=== PATIENT | male | born 1990 | race Caucasian/White ===

== ENCOUNTER 2016-08-17 12:31 | Observation (INO) | payer OTHER ==
[~2016-08-17] VITALS: Ht 167.6 cm; Wt 121.7 kg
[~2016-08-17 12:31] MED LIST: ALBU0.08 INH; ALBU1AER9 INH; BUPR200T2 PO; CITA10TA8 PO; EPP3/2; FLUT0.15; MONT1TAB3 PO; OMEP20CA9 PO; PRED20TA PO
[2016-08-17] MEDS ORDERED: SODIUM CHLORIDE 0.9% 1000ML 1,000 ML IV STA (12:44)
[2016-08-17 13:15] LABS: BASO % 0.1 %; BASO ABS # 0.01 K/uL (0-0.2); COMPLETE YES; EOS % 0.4 %; IG% 0.8 %; LYMPH % 25.7 %; LYMPH ABS # 2.33 K/uL (1.2-3.4); MEAN CELL VOLUME 84.5 fL (80-100); MEAN CORPUSCULAR HEMOGLOBIN 28.6 pg (25-34); MEAN CORPUSCULAR HGB CONC 33.9 g/dl (32-36); MEAN PLATELET VOLUME 10.1 fL (7.4-10.4); MONO % 13.3 %; NEUT % 59.7 %; PLATELET COUNT 242 K/uL (130-400); RED BLOOD COUNT 5.21 M/uL (4.7-6.1); WHITE BLOOD COUNT 9.08 K/uL (4.8-10.8)
[2016-08-17 13:30] LABS: BUN/CREATININE RATIO 9.1 (10-20); CALCIUM 8.1 mg/dl (8.5-10.1); CREATININE 1.2 mg/dl (0.60-1.40); POTASSIUM 3.5 mmol/L (3.5-5.1)
[2016-08-17 13:32] LABS: C-REACTIVE PROTEIN 3.26 mg/dl (0-0.29)
[2016-08-17] MEDS ORDERED: DEXAMETHASONE SOD INJ 10 MG/ML VIAL IV ONE (13:45)
[2016-08-17] MEDS ORDERED: CLINDAMYCIN IV 900 MG in DEXTROSE 5% ADD-VANTAGE 100ML 100 ML IV ONE (13:45)
[2016-08-17] MEDS ORDERED: FLUT1INH7 INH (14:04)
--- NOTE | 2016-08-17 14:04 | DIAGNOSTIC IMAGING REPORT ---
CT SCAN OF THE NECK WITHOUT IV CONTRAST; CT SCAN OF THE FACIAL BONES CLINICAL HISTORY: Right facial swelling. Jaw pain. Reported history of recent dental extractions. COMPARISON STUDY: No priors. TECHNIQUE: High-resolution CT scan of the facial bones is performed. Images are reviewed in the axial, sagittal, and coronal planes. Unenhanced CT scan of the soft tissues of the neck was also performed from the skull base to the upper chest with images reviewed in the axial, sagittal, and coronal planes. IV contrast was not administered due to reported history of IV contrast allergy. Note that the neck CT is significantly suboptimal without IV contrast. CT DOSE: 1160.37 mGy.cm FINDINGS: Soft tissues and pharynx: There is significant edema of the superficial and deep soft tissues throughout the right facial region and neck. This extends from the mandibular ramus, surrounds the submandibular gland, and extends inferiorly into the supraclavicular region. No organized fluid collection is clearly identified on these unenhanced examinations. Edema extends throughout the right parapharyngeal fat, and there is mild right-sided retropharyngeal soft tissue edema. This causes effacement of the pharyngeal airway without significant compromised. There is only mild edema centered in the left facial soft tissues at and below the level of the mandibular ramus and around the submandibular gland. The left parapharyngeal fat appears preserved. The epiglottis is not well visualized. Lymphadenopathy: There are shotty cervical lymph nodes. Thyroid: Normal in size and attenuation. Salivary glands: The parotid glands are normal in appearance. There is significant inflammatory stranding around both submandibular glands, right greater than left. Brain parenchyma: The visualized brain parenchyma at the skull base is normal in appearance. Calvarium and cervical spine: Imaged portions of the calvarium at the skull base are within normal limits. The cervical spine appears intact. Facial bones: There is no evidence of facial bone fracture. The bony orbits are intact and the orbital contents are within normal limits. The zygomatic arches, nasal bones, and pterygoid plates are preserved. The maxilla and mandible are intact. The central and lateral mandibular incisors are absent. There are several missing maxillary and mandibular molars, likely related to recent wisdom tooth extraction. There is periostitis identified along the right body of the mandible, likely related to recent dental extractions. Sinuses and mastoids: There is moderate mucosal thickening in the left maxillary antrum. Mild mucosal thickening is seen within the right maxillary antrum, the ethmoid sinuses, and the frontal sinuses. Trace mucosal thickening is seen in the sphenoid sinuses. The mastoid air cells are well pneumatized. Lung apices: There is patchy groundglass consolidation seen in the upper lobes, left greater than right. IMPRESSION: 1. There is marked edema of the superficial and deep soft tissues of the right face and neck. This involves the submandibular and submental regions. There is milder inflammatory stranding identified in the left neck adjacent to the mandible ramus and around the left submandibular gland. There is marked inflammatory stranding throughout the right parapharyngeal region with loss of the parapharyngeal fat. There is also mild right-sided retropharyngeal edema. Soft tissue edema mildly compromises the right side of the pharyngeal airway. This is likely related to a nonspecific infectious process, and Sher angina is not excluded. ENT consultation is advised. 2. No organized fluid collection is clearly identified on this unenhanced examination. 3. There is patchy groundglass consolidation present in both upper lobes. This likely represents an infectious or inflammatory pneumonitis. 4. There are several missing maxillary and mandibular molars, likely related to recent wisdom tooth extraction. This may represent a source of infection. 5. There is periostitis along the right mandibular body and ramus, likely related to recent surgery. No facial bone fracture is clearly identified. 6. Paranasal sinus disease as above. Findings were discussed with Dr. Zhou in the emergency department at the time of examination. Electronically signed by: Shan Saenz M.D. 08/17/2016 2:02 PM
--- NOTE | 2016-08-17 14:36 | EMERGENCY ROOM VISIT NOTE ---
History Report prepared by Karina: Charbel Lewis Under the Supervision of: Dr. Malcom Zhou M.D. First contact with patient: 12:40 Chief Complaint: THROAT PAIN/INJURY Stated Complaint: SWOLLEN RIGHT SIDE, THROAT SWOLLEN History of Present Illness The patient is a 26 year old male who presents to the Emergency Room with complaints of worsening right sided facial swelling beginning yesterday. He states that the area is very painful. He has associated sore throat and cough. The patient states that his pain began under his tongue and moved into his face. He notes that he has been on Prednisone recently for an asthma attack. He states that he took Benadryl for his symptoms yesterday but it did not improve his swelling. The patient has had multiple teeth removed from the right side. Source of History: patient Onset: Yesterday Position: head (right face) Quality: other (swelling) Timing: worsening Associated Symptoms: + cough, + sorethroat Review of Systems See HPI for pertinent positives & negatives. A total of 10 systems reviewed and were otherwise negative. Past Medical & Surgical Medical Problems: (1) ADD (attention deficit disorder) (2) Allergic rhinitis (3) Allergy to shellfish (4) Asthma (5) Asthma (6) Asthma, Unspecified (7) Cellulitis and abscess of face (8) Generalized anxiety disorder (9) GERD (gastroesophageal reflux disease) (10) Migraines (11) Personal History, Pneumonia (Recurrent) (12) Pneumonia (13) Sinusitis, acute (14) Tobacco Use Disorder Family History Asthma FATHER BROTHER AUNT Cancer Diabetes mellitus Gallbladder disease Heart disease Hypertension Social History Smoking Status: Never Smoker Alcohol Use: occasionally Drug Use: none Marital Status: single Occupation Status: employed Current/Historical Medications Scheduled Bupropion (Wellbutrin Sr), 200 MG PO DAILY Citalopram Hydrobromide (Celexa), Unknown Dose PO DAILY Fluticasone Furoate-Vilanterol (Breo Ellipta 200-25 Mcg/INH), 1 PUFF INH DAILY Fluticasone Propionate (Nasal) (Flonase Allergy Relief), 2 SPRAYS NA DAILY Montelukast Sodium (Singulair), 10 MG PO HS Omeprazole (Prilosec), 20 MG PO BID Prednisone (Prednisone), 0 PO DAILY Scheduled PRN Albuterol Soln (Proventil 0.083% 2.5MG/3ML), 2.5 MG INH Q4H PRN for wheezing Albuterol Sulfate (Proair Hfa), 2 PUFFS INH QID PRN for as needed Miscellaneous Medications Epinephrine (Epipen 2-Renato) Allergies Coded Allergies: Shellfish (Verified Allergy, Severe, throat tightness and hives, 08/17/16) Penicillins (Verified Allergy, Intermediate, HIVES, 08/17/16) Iodinated Diagnostic Agents (Verified Allergy, Unknown, ., 08/17/16) Physical Exam Vital Signs Date Time Temp Pulse Resp B/P Pulse Ox O2 Delivery O2 Flow Rate FiO2 08/17/16 15:07 96 Room Air 08/17/16 14:23 94 18 128/89 96 Room Air 08/17/16 13:48 90 08/17/16 12:34 36.9 97 26 167/84 93 Room Air 08/17/16 12:34 93 Room Air Physical Exam GENERAL: Patient is uncomfortable appearing and in mild distress. HEENT: No acute trauma, normocephalic atraumatic,mucous membranes moist, no nasal congestion, no scleral icterus. Large right facial swelling extending from the right maxillary sinus underneath the jaw crossing the midline. No erythema of the face. Tenderness over the right lower jaw. No fluctuance. Mal 3+ . Erythematous tonsils and posterior pharynx. NECK: No stridor, no adenopathy, no meningismus, trachea is midline. LUNGS: Mild crackles of the lungs bilaterally. HEART: Regular rate and rhythm. No murmurs, rubs, gallops appreciated. ABDOMEN: Soft, nontender, bowel sounds positive, no masses appreciated, no peritonitis. BACK: No midline tenderness, no CVA tenderness EXTREMITIES: Normal motion all extremities, no cyanosis, no edema. NEUROLOGIC: Alert and oriented, no acute motor or sensory deficits, no focal weakness, cranial nerves grossly intact. SKIN: No rash, no jaundice, no diaphoresis. Medical Decision & Procedures ER Provider Diagnostic Interpretation: X ray results and stated below per my interpretation and radiologist interpretation. CT SCAN OF THE NECK WITHOUT IV CONTRAST; CT SCAN OF THE FACIAL BONES FINDINGS: Soft tissues and pharynx: There is significant edema of the superficial and deep soft tissues throughout the right facial region and neck. This extends from the mandibular ramus, surrounds the submandibular gland, and extends inferiorly into the supraclavicular region. No organized fluid collection is clearly identified on these unenhanced examinations. Edema extends throughout the right parapharyngeal fat, and there is mild right-sided retropharyngeal soft tissue edema. This causes effacement of the pharyngeal airway without significant compromised. There is only mild edema centered in the left facial soft tissues at and below the level of the mandibular ramus and around the submandibular gland. The left parapharyngeal fat appears preserved. The epiglottis is not well visualized. Lymphadenopathy: There are shotty cervical lymph nodes. Thyroid: Normal in size and attenuation. Salivary glands: The parotid glands are normal in appearance. There is significant inflammatory stranding around both submandibular glands, right greater than left. Brain parenchyma: The visualized brain parenchyma at the skull base is normal in appearance. Calvarium and cervical spine: Imaged portions of the calvarium at the skull base are within normal limits. The cervical spine appears intact. Facial bones: There is no evidence of facial bone fracture. The bony orbits are intact and the orbital contents are within normal limits. The zygomatic arches, nasal bones, and pterygoid plates are preserved. The maxilla and mandible are intact. The central and lateral mandibular incisors are absent. There are several missing maxillary and mandibular molars, likely related to recent wisdom tooth extraction. There is periostitis identified along the right body of the mandible, likely related to recent dental extractions. Sinuses and mastoids: There is moderate mucosal thickening in the left maxillary antrum. Mild mucosal thickening is seen within the right maxillary antrum, the ethmoid sinuses, and the frontal sinuses. Trace mucosal thickening is seen in the sphenoid sinuses. The mastoid air cells are well pneumatized. Lung apices: There is patchy groundglass consolidation seen in the upper lobes, left greater than right. IMPRESSION: 1. There is marked edema of the superficial and deep soft tissues of the right face and neck. This involves the submandibular and submental regions. There is milder inflammatory stranding identified in the left neck adjacent to the mandible ramus and around the left submandibular gland. There is marked inflammatory stranding throughout the right parapharyngeal region with loss of the parapharyngeal fat. There is also mild right-sided retropharyngeal edema. Soft tissue edema mildly compromises the right side of the pharyngeal airway. This is likely related to a nonspecific infectious process, and Sher angina is not excluded. ENT consultation is advised. 2. No organized fluid collection is clearly identified on this unenhanced examination. 3. There is patchy groundglass consolidation present in both upper lobes. This likely represents an infectious or inflammatory pneumonitis. 4. There are several missing maxillary and mandibular molars, likely related to recent wisdom tooth extraction. This may represent a source of infection. 5. There is periostitis along the right mandibular body and ramus, likely related to recent surgery. No facial bone fracture is clearly identified. 6. Paranasal sinus disease as above. Findings were discussed with Dr. Zhou in the emergency department at the time of examination. Electronically signed by: Shan Saenz M.D. CT SCAN OF THE NECK WITHOUT IV CONTRAST; CT SCAN OF THE FACIAL BONES FINDINGS: Soft tissues and pharynx: There is significant edema of the superficial and deep soft tissues throughout the right facial region and neck. This extends from the mandibular ramus, surrounds the submandibular gland, and extends inferiorly into the supraclavicular region. No organized fluid collection is clearly identified on these unenhanced examinations. Edema extends throughout the right parapharyngeal fat, and there is mild right-sided retropharyngeal soft tissue edema. This causes effacement of the pharyngeal airway without significant compromised. There is only mild edema centered in the left facial soft tissues at and below the level of the mandibular ramus and around the submandibular gland. The left parapharyngeal fat appears preserved. The epiglottis is not well visualized. Lymphadenopathy: There are shotty cervical lymph nodes. Thyroid: Normal in size and attenuation. Salivary glands: The parotid glands are normal in appearance. There is significant inflammatory stranding around both submandibular glands, right greater than left. Brain parenchyma: The visualized brain parenchyma at the skull base is normal in appearance. Calvarium and cervical spine: Imaged portions of the calvarium at the skull base are within normal limits. The cervical spine appears intact. Facial bones: There is no evidence of facial bone fracture. The bony orbits are intact and the orbital contents are within normal limits. The zygomatic arches, nasal bones, and pterygoid plates are preserved. The maxilla and mandible are intact. The central and lateral mandibular incisors are absent. There are several missing maxillary and mandibular molars, likely related to recent wisdom tooth extraction. There is periostitis identified along the right body of the mandible, likely related to recent dental extractions. Sinuses and mastoids: There is moderate mucosal thickening in the left maxillary antrum. Mild mucosal thickening is seen within the right maxillary antrum, the ethmoid sinuses, and the frontal sinuses. Trace mucosal thickening is seen in the sphenoid sinuses. The mastoid air cells are well pneumatized. Lung apices: There is patchy groundglass consolidation seen in the upper lobes, left greater than right. IMPRESSION: 1. There is marked edema of the superficial and deep soft tissues of the right face and neck. This involves the submandibular and submental regions. There is milder inflammatory stranding identified in the left neck adjacent to the mandible ramus and around the left submandibular gland. There is marked inflammatory stranding throughout the right parapharyngeal region with loss of the parapharyngeal fat. There is also mild right-sided retropharyngeal edema. Soft tissue edema mildly compromises the right side of the pharyngeal airway. This is likely related to a nonspecific infectious process, and Sher angina is not excluded. ENT consultation is advised. 2. No organized fluid collection is clearly identified on this unenhanced examination. 3. There is patchy groundglass consolidation present in both upper lobes. This likely represents an infectious or inflammatory pneumonitis. 4. There are several missing maxillary and mandibular molars, likely related to recent wisdom tooth extraction. This may represent a source of infection. 5. There is periostitis along the right mandibular body and ramus, likely related to recent surgery. No facial bone fracture is clearly identified. 6. Paranasal sinus disease as above. Findings were discussed with Dr. Zhou in the emergency department at the time of examination. Electronically signed by: Shan Saenz M.D. Laboratory Results 08/17/16 12:58 Red Blood Count 5.21, Mean Corpuscular Volume 84.5, Mean Corpuscular Hemoglobin 28.6, Mean Corpuscular Hemoglobin Concent 33.9, Mean Platelet Volume 10.1, Neutrophils (%) (Auto) 59.7, Lymphocytes (%) (Auto) 25.7, Monocytes (%) (Auto) 13.3, Eosinophils (%) (Auto) 0.4, Basophils (%) (Auto) 0.1, Neutrophils # (Auto ) 5.42, Lymphocytes # (Auto) 2.33, Monocytes # (Auto) 1.21, Eosinophils # (Auto ) 0.04, Basophils # (Auto) 0.01 08/17/16 12:58 Test 08/17/16 12:58 08/17/16 14:50 White Blood Count 9.08 K/uL (4.8-10.8) Red Blood Count 5.21 M/uL (4.7-6.1) Hemoglobin 14.9 g/dL (14.0-18.0) Hematocrit 44.0 % (42-52) Mean Corpuscular Volume 84.5 fL (80-100) Mean Corpuscular Hemoglobin 28.6 pg (25-34) Mean Corpuscular Hemoglobin Concent 33.9 g/dl (32-36) Platelet Count 242 K/uL (130-400) Mean Platelet Volume 10.1 fL (7.4-10.4) Neutrophils (%) (Auto) 59.7 % Lymphocytes (%) (Auto) 25.7 % Monocytes (%) (Auto) 13.3 % Eosinophils (%) (Auto) 0.4 % Basophils (%) (Auto) 0.1 % Neutrophils # (Auto) 5.42 K/uL (1.4-6.5) Lymphocytes # (Auto) 2.33 K/uL (1.2-3.4) Monocytes # (Auto) 1.21 K/uL (0.11-0.59) Eosinophils # (Auto) 0.04 K/uL (0-0.5) Basophils # (Auto) 0.01 K/uL (0-0.2) RDW Standard Deviation 45.0 fL (36.4-46.3) RDW Coefficient of Variation 14.6 % (11.5-14.5) Immature Granulocyte % (Auto) 0.8 % Immature Granulocyte # (Auto) 0.07 K/uL (0.00-0.02) Anion Gap 7.0 mmol/L (3-11) Est Creatinine Clear Calc Drug Dose 113.4 ml/min Estimated GFR () 95.5 Estimated GFR (Non- 82.4 BUN/Creatinine Ratio 9.1 (10-20) Calcium Level 8.1 mg/dl (8.5-10.1) C-Reactive Protein 3.26 mg/dl (0-0.29) Bedside Lactic Acid Venous 1.13 mmol/L (0.90-1.70) Laboratory results as reviewed by me. Medications Administered Medications (Trade) Dose Ordered Sig/Cassidy Route Start Time Stop Time Status Last Admin Dose Admin Sodium Chloride (Nss 1000ml) 1,000 ml @ 999 mls/hr Q1H1M STAT IV 08/17/16 12:44 08/17/16 13:44 DC 08/17/16 13:00 999 MLS/HR Dexamethasone Sodium Phosphate 10 mg 10 mg NOW ONCE IV 08/17/16 13:45 08/17/16 13:46 DC 08/17/16 15:00 10 MG Clindamycin Phosphate/Dextrose (Cleocin Iv/ Dextrose Add-Winona 100ML) 106 ml @ 100 mls/hr ONE ONCE IV 08/17/16 13:45 08/17/16 14:48 DC 08/17/16 15:00 100 MLS/HR ED Course 1240: The patient was evaluated in room B8. A complete history and physical exam was performed. 1244: Ordered NSS 1000 mL @ 999 mL/hr IV. 1345: Ordered Clindamycin Phosphate 900 mg/Dextrose 106 mL @ 100 mL/hr IV, Decadron 10 mg IV. 1407: Upon reevaluation, the patient is resting comfortably. Discussed results and treatment plan with the patient. He verbalized understanding and agreement with the treatment plan. The patient will be evaluated for further management. Medical Decision 26 yr old male arrives with acute swelling over last 12 hours of his face and neck. Remote history of right dental removal though seems prolonged from that and I would suspect the swelling is cellulitis that has ceded from either sinuses or bronchitis/pneumonia. Exam concerning though at present I do not feel he has true ludwigs, but rather a diffuse cellulitis that has now involved retropharyngeal space. Breathing comfortably and protecting airway though with CT findings and amount of swelling I see on his face I asked ENT to come in emergently to evaluate airways. Patient re-evaluated many times throughout ED stay. Empirically given IV Clinda along with IV Decadron. Does have evidence of pneumonia on CT though Clinda should cover this is as well. Consults Time Called: [phone] Consulting Physician: Dr. Butt -ENT Returned Call: [phone] Discussed the patient's case. Dr. Butt recommends the patient be observed in the hospital. Additional Consults: Time Called: [phone] Consulted Physician: Dr. Chirag Park Returned Call: [phone] Additional Comments: Discussed the patient's case. The patient will be evaluated for further treatment and disposition. Impression Primary Impression: Narrow pharyngeal airway Additional Impressions: Facial cellulitis, Bilateral pneumonia Critical Care I have personally spent greater than 35 minutes of critical care time in the direct management of this patient. This was a life/limb threatening event. This includes time spent evaluating patient, direct bedside care, chart review, placing orders, interpretation of diagnostic studies, discussion with consultants, patient, and family members, as well as other required patient management activities. This 35 minutes is in excess of all separately billable procedures. Scribe Attestation The scribe's documentation has been prepared under my direction and personally reviewed by me in its entirety. I confirm that the note above accurately reflects all work, treatment, procedures, and medical decision making performed by me. Departure Information Dispostion Being Evaluated By Hospitalist Referrals Chad Cantu D.O. (PCP) Patient Instructions A Signature Page, My [facility]
[2016-08-17] MEDS ORDERED: ONDANSETRON INJ 2 MG/ML 2 ML VIAL IV PRN (15:00)
[2016-08-17 15:07] VITALS: O2SAT 96; Ht 167.6 cm; Wt 121.7 kg
[2016-08-17] MEDS ORDERED: ALBUTEROL HFA 8 GM INHALER INH PRN (15:15)
[2016-08-17] MEDS ORDERED: ALBUTEROL 0.083% NEBU SOLN 3 ML VIAL INH PRN (15:15)
[2016-08-17] MEDS ORDERED: IV FLUIDS COMPLETED PRN (15:15)
--- NOTE | 2016-08-17 16:17 | HISTORY & PHYSICAL EXAMINATION ---
DATE OF ADMISSION: 08/17/2016 PRIMARY CARE PHYSICIAN: Dr. Chad Cantu. CHIEF COMPLAINT: Right-sided facial swelling with difficulty in swallowing since yesterday. HISTORY OF PRESENT COMPLAINT: He is a 26-year-old male with significant past medical history including dental abscess, anxiety, asthma, and allergic rhinitis. Apparently has been complaining of pain involving the right undersurface of the tongue on the right side for the last 2 days. He also complains to have sudden swelling of the right side of the face on the lower part since yesterday. He has been having problem with swallowing, especially painful when he tries to swallow. He feels feverish with it, but he did not have any problem with chewing. No abdominal pain, no nausea, no vomiting. No headache, no blurred vision, no numbness or tingling in the extremities. He does have cough without any phlegm and mild shortness of breath which can be secondary to asthma. In the ER, apparent CAT scan of the soft tissue of the neck and CAT scan of the face did show extensive edema involving the right side of the face, involving the maxillary sinus and maxillary bone area with minimal compromise of the airways and also that did show bilateral upper lobe pneumonitis/infiltration. From that point, ENT consultation was taken and the patient was admitted to telemetry unit for continuation of care. PAST MEDICAL HISTORY: Significant for asthma, moderate persistent; history of dental abscess status post dental extraction more than 2 months ago; generalized anxiety disorder; migraine and allergic rhinitis. PAST SURGICAL HISTORY: Significant for dental abscess but no other significant surgery. FAMILY HISTORY: Significant in that, asthma in the family, diabetes with father and maternal grandfather, hypertension with maternal grandfather. SOCIAL HISTORY: He is . He quit smoking in 2013. He uses alcohol socially and he has been reasonably ambulant. ALLERGIES: HE IS ALLERGIC TO SHELLFISH, PENICILLIN, AND IODINATED CONTRAST AGENTS. MEDICATIONS: As an outpatient, he has been on Proventil nebulized solutions as directed, ProAir HFA 2 puffs q.i.d. as needed, Wellbutrin SR 200 mg daily, Celexa 10 mg daily, EpiPen at home, nasal Flonase as directed, Singulair 10 mg daily, prednisone reducing regimen but he has been down to 40 mg once a day, Breo 1 puff daily, and omeprazole 20 mg twice daily. REVIEW OF SYSTEMS: Other systemic review unremarkable for system review, please see history of present illness. PHYSICAL EXAMINATION: GENERAL: On examination in the Emergency Room, he was not having any acute distress. He complained of some swelling of the right of the face and some pain under the tongue area on the right side. HEENT: Unremarkable. VITAL SIGNS: Temperature 36.9, pulse is 94, blood pressure 128/89, saturation 96% on room air. HEENT: Unremarkable except swelling involving the right side of the face and the lower part mainly, some tenderness in the submandibular area with shotty lymph nodes in the submandibular and anterior neck area. Oral cavity inflamed on the right side. NECK: Otherwise supple. CHEST: Clear to auscultation bilaterally. HEART: S1, S2 regular; no murmur. ABDOMEN: Soft, benign, nontender, no organomegaly. Bowel sounds present. EXTREMITIES: Negative for any edema. MUSCULOSKELETAL: Examination of the musculoskeletal system did not show any acute arthritis involving any joint. CENTRAL NERVOUS SYSTEM: He was alert, awake, oriented x3. No focal sensory and/or motor deficit appreciated. LABORATORY DATA: Noted today, white count was 9.08, H\T\H 14.9/44.0, platelet was 242. Sodium 141, potassium 3.5, chloride 105, carbon dioxide 29, BUN 11, creatinine 1.20. C-reactive protein was 3.26, calcium 8.1. Soft tissue neck CAT scan did show marked edema of the superficial and deep soft tissues of the right face and neck area. Patchy ground-glass consolidation present in both upper lobes. There are several missing maxillary and mandibular molars, likely related to recent wisdom tooth extraction, this may represent the source of infection. There is periostitis along the right mandibular body and ramus. Faciomaxillary CAT scan, similar finding. There was mild right-sided retropharyngeal edema, soft tissue edema mildly compromises the right side of the pharyngeal airway. He is status post ENT evaluation, the indirect laryngoscope that did show inflammation involving the right maxillary sinus area but no significant airway obstruction. IMPRESSION AND PLAN: 1. Right maxillary sinusitis/dental abscess with marked edema in the adjoining area, minimal compromise of the airways. The patient will be admitted to telemetry unit. Clindamycin intravenous will be given and blood culture was taken. ENT evaluation. Appreciate input. Continue with clindamycin and intravenous Decadron. 2. Bilateral upper lobe haziness, could represent infectious process. Could have aspiration with swallowing difficulty. We will put him on azithromycin IV while in the hospital. 3. Asthma, seems to be stable at this time, has been on tapered dose of prednisone. We will continue that on discharge. Continue with her inhalers and other nebulized bronchodilator. 4. Anxiety disorder. Continue with current medications. 5. Gastrointestinal prophylaxis with PPI. 6. Deep venous thrombosis prophylaxis with SCDs and advised to increase ambulation. 7. Code status. He will be a full code. In my clinical judgment, the beneficiary meets criteria as per CMS for 2-midnight stay in the hospital. MTDD
--- NOTE | 2016-08-17 17:39 | ENT CONSULTATION ---
DATE OF CONSULTATION: 08/17/2016 I have been asked by Dr. Zhou to evaluate this patient with right facial swelling. HISTORY OF PRESENT ILLNESS: The patient is a 26-year-old male who presented to the [facility] Emergency Room on 08/17/2016 with right neck and facial swelling. He noted yesterday the onset of some discomfort underneath his tongue and then noted right perimandibular and neck swelling, which has doubled in size since yesterday according to patient. He does have some odynophagia and mild dysphagia with mild hoarseness. He denies any referred otalgia or unexplained weight loss. Of note, he did have multiple dental extractions in early May. He denies any pain with chewing. He was recently seen in the Emergency Room just 3 days ago with an asthma attack. ALLERGIES: PENICILLIN, SHELLFISH, AND IV DYE. MEDICATIONS AT HOME: Wellbutrin, Celexa, Flonase, Singulair, Prilosec, prednisone, albuterol, epinephrine p.r.n. PAST MEDICAL HISTORY: 1. Asthma. 2. Allergic rhinitis. 3. SHELLFISH ALLERGY. 4. ADD. 5. PTSD. 6. Anxiety. 7. Reflux. 8. Obesity. 9. Migraines. 10. Pneumonia. PAST SURGICAL HISTORY: Status post dental extractions in May of 2016. No other surgeries. FAMILY HISTORY: Noncontributory. No bleeding disorders or malignant hyperthermia. SOCIAL HISTORY: The patient denies any history of tobacco use. He drinks alcohol twice per year. He denies any illicit drug use. He is unemployed and single. REVIEW OF SYSTEMS: The patient denies any referred otalgia, hearing loss, tinnitus, dizziness, or vertigo. He does have sinonasal congestion with purulent rhinorrhea and postnasal drip with cough. He does have shortness of breath and wheezing. He does feel fatigued. He does have pain over his right mandibular area and neck. He has pain with swallowing and mild difficulty swallowing and mild hoarseness. He denies any drooling. PHYSICAL EXAMINATION: GENERAL: This is an obese white male in no acute distress with no stertor or stridor and who has mild hoarseness. HEENT: Bilateral external auditory canals and tympanic membranes are clear. Nasal examination reveals crusting within the left greater than right nasal cavities with mild nasal mucosal congestion and bilateral inferior turbinate hypertrophy. Oral cavity and oropharyngeal examination reveal relatively good remaining dentition. There is some mild swelling along the right maxillary alveolus, but no fluid collection. There is no evidence of a stone in Platte duct either on inspection or palpation. The patient has a narrowed oropharyngeal airway with redundant soft palate tissue. NECK: Reveals right submandibular swelling with tenderness to palpation over the immediate right submandibular region. There is no overlying warmth, fluctuance, or erythema. After administration of topical lidocaine and Afrin to the right nasal cavity, flexible nasopharyngeal laryngoscopy was performed due to patient's parapharyngeal edema on his CT scan. The patient had hyperactive gag reflex despite anesthesia and making the examination difficult. Of note, there was a lot of purulence within his nasal cavities and nasopharynx extending down to the hypopharynx. There was some mild erythema and watery edema of his right hypopharynx involving his arytenoid and aryepiglottic fold. There were no definitive mucosal lesions or masses. There was normal bilateral true vocal fold for mobility to midline. The glottal airway was widely patent with no airway compromise. IMAGING: CT scan of the maxillofacial area as well as the neck was reviewed with both the report and films visualized. The scan is limited due to the lack of IV contrast due to patient's allergy. There is significant edema of the soft tissues of the right facial and submandibular region. There is no definitive fluid collection seen. There is right parapharyngeal and retropharyngeal soft tissue edema and what looks like a phlegmon without any definitive fluid collection. There is some mild effacement of the hypopharyngeal airway without significant compromise. There is only shotty lymphadenopathy. There are no masses within the submandibular glands. There is some perhaps right mandibular periostitis due to his dental extractions, which may be related to what is going on clinically. There is also some [id number] mucosal thickening involving his bilateral maxillary, ethmoid and frontal sinuses. ASSESSMENT AND RECOMMENDATIONS: A 26-year-old male with acute onset of right facial and neck swelling without a definitive abscess. Dr. Zhou had recommended clindamycin and Decadron which I agree with. I would recommend clindamycin 900 mg IV q. 8 hours as well as Decadron 10 mg IV q. 8 hours at least for 24 hours to see his response before tapering the steroids. I believe this patient had acute sinusitis leading to bronchitis which also may be contributing to his right facial and neck swelling. Also, there is his history of a relatively recent dental extractions 2 months ago which may be playing a role. This case was discussed with both Dr. Zhou as well as the admitting hospitalist. I will continue to monitor this patient with you and will see him tomorrow morning. If you have any questions regarding this patient's care, please do not hesitate to contact me.
[2016-08-17 17:42] VITALS: BP 153/85; PULSE 88; TEMP 37.5; O2SAT 90
[2016-08-17] MEDS: BREO ELLIPTA: ORDER AWAITING ACTION SCH (17:48)
[2016-08-17] MEDS: NSS + 20MEQ KCL 1000ML 1,000 ML IV SCH (18:24)
[2016-08-17] MEDS: AZITHROMYCIN IV 500 MG in DEXTROSE 5% 250ML 250 ML IV SCH (18:24)
[2016-08-17] MEDS: MONTELUKAST SOD 10 MG TAB PO SCH (20:21)
[2016-08-17] MEDS: PANTOprazole SOD 40 MG TAB PO SCH (20:21)
[2016-08-17] MEDS: DEXAMETHASONE INJ 10 MG in SYRINGE 0 ML IV SCH (22:45)
[2016-08-17] MEDS: CLINDAMYCIN IV 900 MG in DEXTROSE 5% ADD-VANTAGE 100ML 100 ML IV SCH (22:45)
[2016-08-18] VITALS (9 sets, daily range): BP systolic 128–176; BP diastolic 76–92; PULSE 61–98; TEMP 36.5–37; O2SAT 92–94
[2016-08-18] MEDS: BREO ELLIPTA: ORDER AWAITING ACTION SCH ×2 (00:38→09:07)
[2016-08-18 05:50] LABS: HEMATOCRIT 45.3 % (42-52); MEAN CELL VOLUME 83.9 fL (80-100); MEAN CORPUSCULAR HEMOGLOBIN 28.3 pg (25-34); MEAN CORPUSCULAR HGB CONC 33.8 g/dl (32-36); MEAN PLATELET VOLUME 10.3 fL (7.4-10.4); PLATELET COUNT 239 K/uL (130-400)
[2016-08-18 06:24] LABS: BUN/CREATININE RATIO 13.9 (10-20); CALCIUM 8.7 mg/dl (8.5-10.1); CREATININE 0.99 mg/dl (0.60-1.40); PHOSPHORUS 3.6 mg/dl (2.5-4.9); POTASSIUM 4.5 mmol/L (3.5-5.1)
[2016-08-18] MEDS: CLINDAMYCIN IV 900 MG in DEXTROSE 5% ADD-VANTAGE 100ML 100 ML IV SCH ×3 (06:29→21:46)
[2016-08-18] MEDS: DEXAMETHASONE INJ 10 MG in SYRINGE 0 ML IV SCH ×3 (06:29→21:46)
[2016-08-18] MEDS: NSS + 20MEQ KCL 1000ML 1,000 ML IV SCH ×3 (06:29→22:13)
[2016-08-18 06:30] LABS: MAGNESIUM 2.5 mg/dl (1.8-2.4)
--- NOTE | 2016-08-18 08:22 | ENT PROGRESS NOTE ---
DATE: 08/18/2016 OTOLARYNGOLOGY HEAD AND NECK SURGERY PROGRESS NOTE The patient reports that he feels better after being on IV steroids and IV antibiotics consisting of Decadron and clindamycin. He is now able to swallow. His hoarseness has decreased. He still has some tenderness along his right perimandibular area. Upon further questioning of his history, the patient states that he gets recurrent acute sinus infections and gets approximately 8-9 antibiotics per year. I asked him this question due to the significant sinonasal disease on his CT scan of the maxillofacial area. PHYSICAL EXAMINATION: On examination, the patient's voice is leas hoarse today. His facial and neck examination is markedly improved with decreased swelling. There is still some induration in the right submandibular region with tenderness to palpation but there is no overlying erythema, warmth, or fluctuance. I estimate that the area has decreased in size by approximately 70%. IMPRESSION AND RECOMMENDATIONS: A 26-year-old male with right facial and neck cellulitis accompanied by recurrent acute and chronic sinusitis with severe asthma and recent dental extractions. He has improved on IV azithromycin, clindamycin and Decadron. I would recommend another 24 hours of IV antibiotics and steroids at the same dose and then discharge to home tomorrow if he continues to improve on a 2 week course of clindamycin 300 mg p.o. q. 6 hours as well as oral steroid taper. I would like to see him back in my office in 2 weeks due to his history of recurrent acute sinusitis as he may be a candidate for bilateral functional endoscopic sinus surgery to prevent recurrent infections as he is suffering from which may be further exacerbating his asthma. Since he is improving and there is likely not going to be any needed surgical intervention for his facial and neck cellulitis I will sign off on this consultation, but please do not hesitate to contact me.
[2016-08-18] MEDS: PANTOprazole SOD 40 MG TAB PO SCH ×2 (09:06→21:46)
[2016-08-18] MEDS: FLUTICASONE PROPIONATE NA SPR 16 GM BTL SCH (09:07)
[2016-08-18] MEDS: BuPROPion SR 100 MG TABCR PO SCH (09:07)
[2016-08-18] MEDS: CITALOPRAM 20 MG TAB PO SCH (09:07)
--- NOTE | 2016-08-18 12:07 | Progress Note ---
Internal Med Progress Note Date of Service: Aug 18, 2016. Provider Documentation: SUBJECTIVE: The patient was seen and examined Right facial swelling and pain are better No fevr,chills OBJECTIVE: Vital Signs-as noted below Exam: General-no9 distress at rest Eyes-Normal EN-normal Throat-Inflamed Neck-Swelling of right Submandibular region and the gland Some tenderness Lungs-Clear Heart-Regular Abdomen-Benign,no masses,bowel sound present Extremities-no edema Neuro-AAOx3 Lab data as noted below. ASSESSMENT & PLAN: Right maxillary sinusitis/dental abscess -marked edema in the adjoining area, -Submandibular gland swelling and edema in adjoining area -Appreciate ENT evaluation -IV Clindamycin and IV Decadron -can be discharge on Oral Clinda and oral Prednisone Taper tomorrow if clinically better Bilateral upper lobe haziness, could represent infectious process. Could be secondary candelaria Aspiration Has Asthma Has been on IV Azithromycin Will need 5 days of Therapy on discharge Asthma, Seems to be stable at this time, has been on tapered dose of prednisone. We will continue that on discharge. Continue with her inhalers and other nebulized bronchodilator. Anxiety disorder. Continue with current medications. Gastrointestinal prophylaxis with PPI. Deep venous thrombosis prophylaxis with SCDs and advised to increase ambulation. Code status. He will be a full code. DISPOSITION Likely home in AM Vital Signs: Date Time Temp Pulse Resp B/P Pulse Ox O2 Delivery O2 Flow Rate FiO2 08/18/16 11:36 36.8 83 20 176/76 94 Room Air 08/18/16 08:25 87 16 94 Room Air 08/18/16 08:00 94 Room Air 08/18/16 07:18 36.7 79 22 142/80 94 Room Air 08/18/16 04:00 Room Air 08/18/16 03:57 36.5 61 20 128/76 93 Room Air 08/18/16 00:09 37.0 81 20 139/78 92 Room Air 08/18/16 00:00 Room Air 08/17/16 20:00 Room Air 08/17/16 17:42 37.5 88 18 153/85 90 Room Air 08/17/16 16:46 96 18 132/91 92 Room Air 08/17/16 15:07 96 Room Air 08/17/16 14:23 94 18 128/89 96 Room Air 08/17/16 13:48 90 08/17/16 12:34 36.9 97 26 167/84 93 Room Air 08/17/16 12:34 93 Room Air Lab Results: Results Past 24 Hours Test 08/17/16 12:58 08/17/16 14:50 08/18/16 05:14 Range/Units White Blood Count 9.08 10.20 4.8-10.8 K/uL Red Blood Count 5.21 5.40 4.7-6.1 M/uL Hemoglobin 14.9 15.3 14.0-18.0 g/dL Hematocrit 44.0 45.3 42-52 % Mean Corpuscular Volume 84.5 83.9 80-100 fL Mean Corpuscular Hemoglobin 28.6 28.3 25-34 pg Mean Corpuscular Hemoglobin Concent 33.9 33.8 32-36 g/dl Platelet Count 242 239 130-400 K/uL Mean Platelet Volume 10.1 10.3 7.4-10.4 fL Neutrophils (%) (Auto) 59.7 % Lymphocytes (%) (Auto) 25.7 % Monocytes (%) (Auto) 13.3 % Eosinophils (%) (Auto) 0.4 % Basophils (%) (Auto) 0.1 % Neutrophils # (Auto) 5.42 1.4-6.5 K/uL Lymphocytes # (Auto) 2.33 1.2-3.4 K/uL Monocytes # (Auto) 1.21 0.11-0.59 K/uL Eosinophils # (Auto) 0.04 0-0.5 K/uL Basophils # (Auto) 0.01 0-0.2 K/uL RDW Standard Deviation 45.0 43.4 36.4-46.3 fL RDW Coefficient of Variation 14.6 14.2 11.5-14.5 % Immature Granulocyte % (Auto) 0.8 % Immature Granulocyte # (Auto) 0.07 0.00-0.02 K/uL Sodium Level 141 139 136-145 mmol/L Potassium Level 3.5 4.5 3.5-5.1 mmol/L Chloride Level 105 105 98-107 mmol/L Carbon Dioxide Level 29 25 21-32 mmol/L Anion Gap 7.0 9.0 3-11 mmol/L Blood Urea Nitrogen 11 14 7-18 mg/dl Creatinine 1.20 0.99 0.60-1.40 mg/dl Est Creatinine Clear Calc Drug Dose 113.4 136.4 ml/min Estimated GFR () 95.5 120.5 Estimated GFR (Non- 82.4 103.9 BUN/Creatinine Ratio 9.1 13.9 10-20 Random Glucose 88 166 70-99 mg/dl Calcium Level 8.1 8.7 8.5-10.1 mg/dl C-Reactive Protein 3.26 0-0.29 mg/dl Bedside Lactic Acid Venous 1.13 0.90-1.70 mmol/L Phosphorus Level 3.6 2.5-4.9 mg/dl Magnesium Level 2.5 1.8-2.4 mg/dl Microbiology Results 08/17/16 Blood Culture, Received Pending 08/17/16 Blood Culture, Received Pending
[2016-08-18] MEDS: MONTELUKAST SOD 10 MG TAB PO SCH (21:46)
[2016-08-18] MEDS: AZITHROMYCIN IV 500 MG in DEXTROSE 5% 250ML 250 ML IV SCH (22:34)
[2016-08-19] VITALS (7 sets, daily range): BP systolic 131–151; BP diastolic 76–96; PULSE 61–68; TEMP 36.3–36.8; O2SAT 94–97
[2016-08-19] MEDS: CLINDAMYCIN IV 900 MG in DEXTROSE 5% ADD-VANTAGE 100ML 100 ML IV SCH (06:15)
[2016-08-19] MEDS: DEXAMETHASONE INJ 10 MG in SYRINGE 0 ML IV SCH (06:15)
[2016-08-19 06:49] LABS: HEMATOCRIT 40.3 % (42-52); MEAN CELL VOLUME 83.8 fL (80-100); MEAN CORPUSCULAR HEMOGLOBIN 28.3 pg (25-34); MEAN CORPUSCULAR HGB CONC 33.7 g/dl (32-36); MEAN PLATELET VOLUME 10.4 fL (7.4-10.4); PLATELET COUNT 233 K/uL (130-400); RED BLOOD COUNT 4.81 M/uL (4.7-6.1); WHITE BLOOD COUNT 16.67 K/uL (4.8-10.8)
[2016-08-19 07:09] LABS: BUN/CREATININE RATIO 17.4 (10-20); CALCIUM 8.4 mg/dl (8.5-10.1); CREATININE 0.98 mg/dl (0.60-1.40); POTASSIUM 4.4 mmol/L (3.5-5.1)
[2016-08-19] MEDS: BREO ELLIPTA: ORDER AWAITING ACTION SCH ×2 (08:00→08:20)
[2016-08-19] MEDS: FLUTICASONE PROPIONATE NA SPR 16 GM BTL SCH (08:18)
[2016-08-19] MEDS: CITALOPRAM 20 MG TAB PO SCH (08:19)
[2016-08-19] MEDS: PANTOprazole SOD 40 MG TAB PO SCH (08:19)
[2016-08-19] MEDS: BuPROPion SR 100 MG TABCR PO SCH (08:20)
[2016-08-19] MEDS: NSS + 20MEQ KCL 1000ML 1,000 ML IV SCH (10:06)
--- NOTE | 2016-08-19 10:57 | Progress Note ---
Internal Med Progress Note Date of Service: Aug 19, 2016. Provider Documentation: SUBJECTIVE: The patient was seen and examined Right facial swelling and pain are better No fever,chills Facial swelling is much better No problem with swallowing and or breathing OBJECTIVE: Vital Signs-as noted below Exam: General-no9 distress at rest Eyes-Normal EN-normal Throat-Inflamed -improved Neck-Swelling of right Submandibular region and the gland-much diminished Some tenderness Lungs-Clear Heart-Regular Abdomen-Benign,no masses,bowel sound present Extremities-no edema Neuro-AAOx3 Lab data as noted below. ASSESSMENT & PLAN: Right maxillary sinusitis/dental abscess -marked edema in the adjoining area, -Submandibular gland swelling and edema in adjoining area -Appreciate ENT evaluation -IV Clindamycin and IV Decadron -can be discharge on Oral Clinda and oral Prednisone Taper tomorrow if clinically better -Discharge home to day on Clinda and tapering dose of Prednisone Bilateral upper lobe haziness, could represent infectious process. Could be secondary candelaria Aspiration Has Asthma Has been on IV Azithromycin Will need 5 days of Therapy on discharge Asthma, Seems to be stable at this time, has been on tapered dose of prednisone. We will continue that on discharge. Continue with her inhalers and other nebulized bronchodilator. Stable to be discharged Anxiety disorder. Continue with current medications. Gastrointestinal prophylaxis with PPI. Deep venous thrombosis prophylaxis with SCDs and advised to increase ambulation. Code status. He will be a full code. DISPOSITION Discharge today Vital Signs: Date Time Temp Pulse Resp B/P Pulse Ox O2 Delivery O2 Flow Rate FiO2 08/19/16 08:00 96 Room Air 08/19/16 07:14 36.4 65 18 148/96 96 08/19/16 04:00 97 BiPAP 08/19/16 03:46 36.3 61 18 131/76 97 BiPAP 08/19/16 00:04 94 Room Air 08/18/16 22:29 91 94 08/18/16 20:00 Room Air 08/18/16 19:35 36.6 98 20 160/92 94 Room Air 08/18/16 15:10 36.5 91 24 167/85 92 Room Air 08/18/16 12:00 Room Air 08/18/16 11:36 36.8 83 20 176/76 94 Room Air Lab Results: Results Past 24 Hours Test 08/19/16 06:27 Range/Units White Blood Count 16.67 4.8-10.8 K/uL Red Blood Count 4.81 4.7-6.1 M/uL Hemoglobin 13.6 14.0-18.0 g/dL Hematocrit 40.3 42-52 % Mean Corpuscular Volume 83.8 80-100 fL Mean Corpuscular Hemoglobin 28.3 25-34 pg Mean Corpuscular Hemoglobin Concent 33.7 32-36 g/dl RDW Standard Deviation 44.2 36.4-46.3 fL RDW Coefficient of Variation 14.3 11.5-14.5 % Platelet Count 233 130-400 K/uL Mean Platelet Volume 10.4 7.4-10.4 fL Sodium Level 141 136-145 mmol/L Potassium Level 4.4 3.5-5.1 mmol/L Chloride Level 109 98-107 mmol/L Carbon Dioxide Level 24 21-32 mmol/L Anion Gap 8.0 3-11 mmol/L Blood Urea Nitrogen 17 7-18 mg/dl Creatinine 0.98 0.60-1.40 mg/dl Est Creatinine Clear Calc Drug Dose 139.2 ml/min Estimated GFR () 122.0 Estimated GFR (Non- 105.2 BUN/Creatinine Ratio 17.4 10-20 Random Glucose 157 70-99 mg/dl Calcium Level 8.4 8.5-10.1 mg/dl
[2016-08-19] MEDS ORDERED: AZIT-57 PO (11:52)
[2016-08-19] MEDS ORDERED: PRED20TA PO (11:52)
[2016-08-19] MEDS ORDERED: CLIN300C2 PO (11:52)
[2016-08-19] MEDS ORDERED: LCTX PO (11:52)
--- NOTE | 2016-08-19 11:54 | Discharge Instructions ---
Discharge Instructions Admission Reason for Admission: Cellulitis And Abscess Of Face,Pneumonia,Sinusitis Discharge Discharge Diagnosis / Problem: Right Facila Cellulitis,Maxillary Sinusitis, Upper lobe pneumonia Discharge Goals Goal(s): Prevent Disease Progression Activity Recommendations Activity Limitations: resume your previous activity . Instructions / Follow-Up Instructions / Follow-Up Dr Traylor on 08/25/2016 at 1:50PM.Keep appointment with ENT Current Hospital Diet Patient's current hospital diet: Regular Diet Discharge Diet Recommended Diet: Regular Diet Pending Studies Studies pending at discharge: no Medical Emergencies . Who to Call and When: Medical Emergencies: If at any time you feel your situation is an emergency, please call 911 immediately. . Non-Emergent Contact Non-Emergency issues call your: Primary Care Provider . . "Provider Documentation" section prepared by Daphne Porter. VTE Core Measure Inpt VTE Proph given/why not?: SCD's
--- NOTE | 2016-08-19 12:15 | Discharge Summary ---
Discharge Summary Admission Date: Aug 17, 2016 at 15:08 Discharge Date: Aug 19, 2016 Discharge Disposition: Home Principal Diagnosis: Right Facial Cellulitis/Dental Abscess,Maxillary Sinusitis,Upper lobe pneumonia Secondary Diagnoses/Problems: Please see H&P Procedures: Nasopharyngeal Laryngoscopy Consultations: ENT Medication Reconciliation New Medications: Azithromycin (Azithromycin) 250 Mg Tab 250 MG PO DAILY, #4 Clindamycin Hcl (Cleocin) 300 Mg Cap 300 MG PO QID for 12 Days, #48 CAP Lactobacillus Acidophilus (Lactinex) Tab 2 TAB PO BID, #30 TAB Changed Medications: Prednisone (Prednisone) 20 Mg Tab 20 MG PO UD for 9 Days, #18 TAB (Changed from: 0 ; DAILY) 3 DAILY FOR 3 DAYS, THEN 2 DAILY FOR 3 DAYS, THEN 1 DAILY FOR 3 DAYS. Continued Medications: Albuterol Soln (Proventil 0.083% 2.5MG/3ML) Nebu 2.5 MG INH Q4H PRN for wheezing, EA Albuterol Sulfate (Proair Hfa) 108 Mcg/ Aer 2 PUFFS INH QID PRN for as needed Bupropion (Wellbutrin Sr) 200 Mg Ertab 200 MG PO DAILY, TAB Citalopram Hydrobromide (Celexa) 10 Mg Tab Unknown Dose PO DAILY, TAB Epinephrine (Epipen 2-Renato) 0.3 Mg Inj For a severe reaction: Inject in outer thigh following instructions on package and go to the Emergency room. Fluticasone Furoate-Vilanterol (Breo Ellipta 200-25 Mcg/INH) 1 Inh Inh 1 PUFF INH DAILY Fluticasone Propionate (Nasal) (Flonase Allergy Relief) 50 Mcg/Act Spr 2 SPRAYS NA DAILY Montelukast Sodium (Singulair) 10 Mg Tab 10 MG PO HS, TAB Omeprazole (Prilosec) 20 Mg Cap 20 MG PO BID, CAP Admission Information HPI (per Admitting provider): DATE OF ADMISSION: 08/17/2016 PRIMARY CARE PHYSICIAN: Dr. Chad Cantu. CHIEF COMPLAINT: Right-sided facial swelling with difficulty in swallowing since yesterday. HISTORY OF PRESENT COMPLAINT: He is a 26-year-old male with significant past medical history including dental abscess, anxiety, asthma, and allergic rhinitis. Apparently has been complaining of pain involving the right undersurface of the tongue on the right side for the last 2 days. He also complains to have sudden swelling of the right side of the face on the lower part since yesterday. He has been having problem with swallowing, especially painful when he tries to swallow. He feels feverish with it, but he did not have any problem with chewing. No abdominal pain, no nausea, no vomiting. No headache, no blurred vision, no numbness or tingling in the extremities. He does have cough without any phlegm and mild shortness of breath which can be secondary to asthma. In the ER, apparent CAT scan of the soft tissue of the neck and CAT scan of the face did show extensive edema involving the right side of the face, involving the maxillary sinus and maxillary bone area with minimal compromise of the airways and also that did show bilateral upper lobe pneumonitis/infiltration. From that point, ENT consultation was taken and the patient was admitted to telemetry unit for continuation of care. PAST MEDICAL HISTORY: Significant for asthma, moderate persistent; history of dental abscess status post dental extraction more than 2 months ago; generalized anxiety disorder; migraine and allergic rhinitis. PAST SURGICAL HISTORY: Significant for dental abscess but no other significant surgery. FAMILY HISTORY: Significant in that, asthma in the family, diabetes with father and maternal grandfather, hypertension with maternal grandfather. SOCIAL HISTORY: He is . He quit smoking in 2013. He uses alcohol socially and he has been reasonably ambulant. ALLERGIES: HE IS ALLERGIC TO SHELLFISH, PENICILLIN, AND IODINATED CONTRAST AGENTS. MEDICATIONS: As an outpatient, he has been on Proventil nebulized solutions as directed, ProAir HFA 2 puffs q.i.d. as needed, Wellbutrin SR 200 mg daily, Celexa 10 mg daily, EpiPen at home, nasal Flonase as directed, Singulair 10 mg daily, prednisone reducing regimen but he has been down to 40 mg once a day, Breo 1 puff daily, and omeprazole 20 mg twice daily. REVIEW OF SYSTEMS: Other systemic review unremarkable for system review, please see history of present illness. PHYSICAL EXAMINATION: GENERAL: On examination in the Emergency Room, he was not having any acute distress. He complained of some swelling of the right of the face and some pain under the tongue area on the right side. HEENT: Unremarkable. VITAL SIGNS: Temperature 36.9, pulse is 94, blood pressure 128/89, saturation 96% on room air. HEENT: Unremarkable except swelling involving the right side of the face and the lower part mainly, some tenderness in the submandibular area with shotty lymph nodes in the submandibular and anterior neck area. Oral cavity inflamed on the right side. NECK: Otherwise supple. CHEST: Clear to auscultation bilaterally. HEART: S1, S2 regular; no murmur. ABDOMEN: Soft, benign, nontender, no organomegaly. Bowel sounds present. EXTREMITIES: Negative for any edema. MUSCULOSKELETAL: Examination of the musculoskeletal system did not show any acute arthritis involving any joint. CENTRAL NERVOUS SYSTEM: He was alert, awake, oriented x3. No focal sensory and/or motor deficit appreciated. LABORATORY DATA: Noted today, white count was 9.08, H\\T\\H 14.9/44.0, platelet was 242. Sodium 141, potassium 3.5, chloride 105, carbon dioxide 29, BUN 11, creatinine 1.20. C-reactive protein was 3.26, calcium 8.1. Soft tissue neck CAT scan did show marked edema of the superficial and deep soft tissues of the right face and neck area. Patchy ground-glass consolidation present in both upper lobes. There are several missing maxillary and mandibular molars, likely related to recent wisdom tooth extraction, this may represent the source of infection. There is periostitis along the right mandibular body and ramus. Faciomaxillary CAT scan, similar finding. There was mild right-sided retropharyngeal edema, soft tissue edema mildly compromises the right side of the pharyngeal airway. He is status post ENT evaluation, the indirect laryngoscope that did show inflammation involving the right maxillary sinus area but no significant airway obstruction. IMPRESSION AND PLAN: 1. Right maxillary sinusitis/dental abscess with marked edema in the adjoining area, minimal compromise of the airways. The patient will be admitted to telemetry unit. Clindamycin intravenous will be given and blood culture was taken. ENT evaluation. Appreciate input. Continue with clindamycin and intravenous Decadron. 2. Bilateral upper lobe haziness, could represent infectious process. Could have aspiration with swallowing difficulty. We will put him on azithromycin IV while in the hospital. 3. Asthma, seems to be stable at this time, has been on tapered dose of prednisone. We will continue that on discharge. Continue with her inhalers and other nebulized bronchodilator. 4. Anxiety disorder. Continue with current medications. 5. Gastrointestinal prophylaxis with PPI. 6. Deep venous thrombosis prophylaxis with SCDs and advised to increase ambulation. 7. Code status. He will be a full code. In my clinical judgment, the beneficiary meets criteria as per CMS for 2-midnight stay in the hospital. Hospital Course Right maxillary sinusitis/dental abscess -marked edema in the adjoining area, -Submandibular gland swelling and edema in adjoining area -Appreciate ENT evaluation -IV Clindamycin and IV Decadron -can be discharge on Oral Clinda and oral Prednisone Taper tomorrow if clinically better -Discharge home to day on Clinda and tapering dose of Prednisone Bilateral upper lobe haziness, could represent infectious process. Could be secondary candelaria Aspiration Has Asthma Has been on IV Azithromycin Will need 5 days of Therapy on discharge Asthma, Seems to be stable at this time, has been on tapered dose of prednisone. We will continue that on discharge. Continue with her inhalers and other nebulized bronchodilator. Stable to be discharged Anxiety disorder. Continue with current medications. Gastrointestinal prophylaxis with PPI. Deep venous thrombosis prophylaxis with SCDs and advised to increase ambulation. Code status. He will be a full code. DISPOSITION Discharge today Total time spent on discharge = 35 minutes This includes examination of the patient, discharge planning, medication reconciliation, and communication with other providers. Discharge Instructions Admission Reason for Admission: Cellulitis And Abscess Of Face,Pneumonia,Sinusitis Discharge Discharge Diagnosis / Problem: Right Facial Cellulitis,Maxillary Sinusitis, Upper lobe pneumonia Discharge Goals Goal(s): Prevent Disease Progression Activity Recommendations Activity Limitations: resume your previous activity . Instructions / Follow-Up Instructions / Follow-Up Dr Traylor on 08/25/2016 at 1:50PM.Keep appointment with ENT Current Hospital Diet Patient's current hospital diet: Regular Diet Discharge Diet Recommended Diet: Regular Diet Pending Studies Studies pending at discharge: no Medical Emergencies . Who to Call and When: Medical Emergencies: If at any time you feel your situation is an emergency, please call 911 immediately. . Non-Emergent Contact Non-Emergency issues call your: Primary Care Provider . . "Provider Documentation" section prepared by Daphne Porter. VTE Core Measure Inpt VTE Proph given/why not?: SCD's <Electronically signed by Daphne Porter M.D.> Additional Copies To Raj Traylor III, M.D.
[2017-08-16] MEDS ORDERED: PRD20 PO (15:32)
[2017-08-16] MEDS ORDERED: LEVO-18 PO (15:32)
== END 2016-08-19 12:25 | disposition home or self-care (01) ==
LOC: ENRESERVDT → ENRESERVTM → C.EDB 12:33 → C.MED 15:08
PROVIDERS: ADMIT Internal Medicine; ATTEND Internal Medicine
DX: L03.211 Cellulitis of face (principal); K04.7 Periapical abscess without sinus; J32.0 Chronic maxillary sinusitis; J18.9 Pneumonia, unspecified organism; J45.909 Unspecified asthma, uncomplicated; K21.9 Gastro-esophageal reflux disease without esophagitis; Z79.52 Long term (current) use of systemic steroids; Z88.0 Allergy status to penicillin; Z91.013 Allergy to seafood; Z91.041 Radiographic dye allergy status; Z87.01 Personal history of pneumonia (recurrent); Z87.891 Personal history of nicotine dependence; Z82.5 Family history of asthma and other chronic lower respiratory diseases; Z83.3 Family history of diabetes mellitus

== ENCOUNTER 2017-08-14 23:50 | Inpatient (IN) | payer OTHER ==
[~2017-08-14] VITALS: Ht 177.8 cm; Wt 121.5 kg
[~2017-08-14 23:50] MED LIST changes: +AZIT-57 PO; +FLUT1INH7 INH
[2017-08-15] VITALS (13 sets, daily range): BP systolic 112–135; BP diastolic 63–74; PULSE 91–140; TEMP 36.4–36.9; O2SAT 91–97; Ht 177.8 cm; Wt 121.5 kg
[2017-08-15] MEDS ORDERED: METHYLPREDNISOLONE 125 MG VIAL IV STA (00:11)
[2017-08-15] MEDS ORDERED: ALBUT/IPRATROP 3MG/0.5MG NEB 3 ML VIAL INH ONE (00:15)
[2017-08-15] MEDS ORDERED: MAGNESIUM SULFATE 1GM / D5W 1 GM BAG IV STA (00:21)
--- NOTE | 2017-08-15 00:21 | EMERGENCY ROOM VISIT NOTE ---
History First contact with patient: 23:54 Chief Complaint: RESPIRATORY PROBLEMS Stated Complaint: RESPIRTORY DIFFICULTY Nursing Triage Summary: Pt arrived via [facility] from home. Pt reports he has had SOB x3 days. Seen at [facility] today and given 2x neb tx and discharged on prednisone. Reports he developed severe SOB/asthma attack tonight. EMS called. Pt given 3x neb enroute and 650 NSS via IV. Hx of asthma and hospital admission for asthma. History of Present Illness The patient is a 27 year old male with hx of asthma, allergic rhinitis, GERD, SAJI/depression, and migraines who presents to the Emergency Room with complaints of difficulty breathing that started about 5 hrs ago. Pt reports "could not breath and felt like passing out" around 5-6pm today. Thinks having asthma exacerbation likely from weather changes. Associated with dry cough, sore throat (thinks from dehydration) x 1 day. Denies f/c, rhinorrhea, otalgia, n/v, abd pn, dysuria, d/c. Treated symptoms with albuterol inhaler 4-5 x as well as 6 rounds of albuterol neb treatments without much relief. Also used spiriva, and breo inhalers today in addition to taking prednisone, and singular. Of note: was seen in the ED a few days ago and started on prednisone 40mg as well. Review of Systems see below Constitutional: No fever, No chills ENT: + sore throat, No nasal symptoms Respiratory: + cough (dry), + wheezing, + shortness of breath Cardiovascular: No chest pain Abdomen: No pain, No nausea, No vomiting, No diarrhea, No constipation Genitourinary - Male: No dysuria Past Medical/Surgical History Medical Problems: (1) ADD (attention deficit disorder) (2) Allergic rhinitis (3) Allergy to shellfish (4) Asthma (5) Asthma (6) Asthma, Unspecified (7) Generalized anxiety disorder (8) GERD (gastroesophageal reflux disease) (9) Migraines (10) Personal History, Pneumonia (Recurrent) (11) Tobacco Use Disorder Family History Asthma FATHER BROTHER AUNT Cancer Diabetes mellitus Gallbladder disease Heart disease Hypertension Social History Smoking Status: Never Smoker Alcohol Use: occasionally Drug Use: none Marital Status: single Occupation Status: employed Current/Historical Medications Scheduled Bupropion (Wellbutrin Sr), 200 MG PO DAILY Escitalopram Oxalate (Lexapro), 1 TAB PO DAILY Fluticasone Furoate-Vilanterol (Breo Ellipta 200-25 Mcg/INH), 1 PUFF INH DAILY Fluticasone Propionate (Nasal) (Flonase Allergy Relief), 2 SPRAYS NA DAILY Hydrochlorothiazide (Hctz), 25 MG PO DAILY Montelukast Sodium (Singulair), 10 MG PO HS Omeprazole (Prilosec), 20 MG PO BID Miscellaneous Medications Epinephrine (Epipen 2-Renato) Physical Exam Vital Signs Date Time Temp Pulse Resp B/P (MAP) Pulse Ox O2 Delivery O2 Flow Rate FiO2 08/15/17 00:30 121/81 08/15/17 00:24 140 24 94 Nasal Cannula 6.0 08/15/17 00:20 139 16 94 Nasal Cannula 6.0 08/15/17 00:00 104/68 08/14/17 23:56 145 08/14/17 23:54 132/97 08/14/17 23:50 88 Room Air 08/14/17 23:50 37.6 150 30 132/97 88 Room Air 08/14/17 23:50 88 Room Air Physical Exam see below General Appearance: + moderate distress, + obese, + pertinent finding ( discheveled) Head: normocephalic, atraumatic Eyes: normal inspection, PERRL ENT: TMs normal, + pertinent finding (dry MMs; mild posterior pharyngeal erythema) Neck: no adenopathy Respiratory/Chest: + decreased breath sounds, + wheezing (diffuse inspiratory and expiratory wheezing) Cardiovascular: no murmur, + tachycardia Abdomen / GI: normal bowel sounds, non tender, soft Extremities: no pedal edema Neurologic/Psych: alert, oriented x 3 Medical Decision & Procedures Laboratory Results 08/15/17 00:45 Red Blood Count 5.11, Mean Corpuscular Volume 85.7, Mean Corpuscular Hemoglobin 29.2, Mean Corpuscular Hemoglobin Concent 34.0, Mean Platelet Volume 10.5, Neutrophils (%) (Auto) 71.0, Lymphocytes (%) (Auto) 17.4, Monocytes (%) (Auto) 10.9, Eosinophils (%) (Auto) 0.3, Basophils (%) (Auto) 0.2, Neutrophils # (Auto ) 8.98, Lymphocytes # (Auto) 2.20, Monocytes # (Auto) 1.38, Eosinophils # (Auto ) 0.04, Basophils # (Auto) 0.02 08/15/17 00:45 Test 08/15/17 00:40 08/15/17 00:45 08/15/17 01:59 Influenza Type A Antigen Neg for Influ A (NEG) Influenza Type B Antigen Neg for Influ B (NEG) White Blood Count 12.65 K/uL (4.8-10.8) Red Blood Count 5.11 M/uL (4.7-6.1) Hemoglobin 14.9 g/dL (14.0-18.0) Hematocrit 43.8 % (42-52) Mean Corpuscular Volume 85.7 fL (80-100) Mean Corpuscular Hemoglobin 29.2 pg (25-34) Mean Corpuscular Hemoglobin Concent 34.0 g/dl (32-36) Platelet Count 280 K/uL (130-400) Mean Platelet Volume 10.5 fL (7.4-10.4) Neutrophils (%) (Auto) 71.0 % Lymphocytes (%) (Auto) 17.4 % Monocytes (%) (Auto) 10.9 % Eosinophils (%) (Auto) 0.3 % Basophils (%) (Auto) 0.2 % Neutrophils # (Auto) 8.98 K/uL (1.4-6.5) Lymphocytes # (Auto) 2.20 K/uL (1.2-3.4) Monocytes # (Auto) 1.38 K/uL (0.11-0.59) Eosinophils # (Auto) 0.04 K/uL (0-0.5) Basophils # (Auto) 0.02 K/uL (0-0.2) RDW Standard Deviation 44.0 fL (36.4-46.3) RDW Coefficient of Variation 14.2 % (11.5-14.5) Immature Granulocyte % (Auto) 0.2 % Immature Granulocyte # (Auto) 0.03 K/uL (0.00-0.02) Anion Gap 7.0 mmol/L (3-11) Est Creatinine Clear Calc Drug Dose 99.8 ml/min Estimated GFR () 75.4 Estimated GFR (Non- 65.1 BUN/Creatinine Ratio 10.7 (10-20) Calcium Level 8.3 mg/dl (8.5-10.1) Bedside Lactic Acid Venous 3.21 mmol/L (0.90-1.70) Medications Administered Medications (Trade) Dose Ordered Sig/Cassidy Route Start Time Stop Time Status Last Admin Dose Admin Methylprednisolone Sodium Succinate (Solu-Medrol IV) 125 mg NOW STAT IV 08/15/17 00:11 08/15/17 00:12 DC 08/15/17 00:50 125 MG Albuterol/ Ipratropium (Duoneb) 12 ml ONE ONCE INH 08/15/17 00:15 08/15/17 00:16 DC 08/15/17 00:20 12 ML Magnesium Sulfate (Magnesium Sulfate) 2 gm NOW STAT IV 08/15/17 00:21 08/15/17 00:23 DC 08/15/17 00:50 2 GM Sodium Chloride 500 ml @ 999 mls/hr Q31M STAT IV 08/15/17 01:24 08/15/17 01:54 DC 08/15/17 01:24 999 MLS/HR Levofloxacin (Levaquin / D5W) 750 mg NOW STAT IV 08/15/17 01:24 08/15/17 01:26 DC 08/15/17 01:55 750 MG ED Course Received: duoneb at 00:20 Received mag sulf 2g IV and solu-medrol 125mg IV at 00:50 1:55 received levoquin 750mg IV 02:05: reported improved breathing; updated pt and notified of admission request Medical Decision 27 year old male with hx of asthma, allergic rhinitis, GERD, SAJI/depression, and migraines who presents to the Emergency Room with recurrent asthma exacerbation despite being on prednisone 40mg consistent with likely weather vs. cold induced asthma exacerbation vs. bronchitis vs. pneumonia vs. viral URI. -Ordered meds: solumedrol 125mg IV stat, magnesium 2g IV, duoneb 12ml over 1 hr -Ordered CXR, rapid influenza, CBC w/t diff, BMP -Neg influenza A and B -CBC w/t diff: WBC of 12.65 with slight L shift -BMP: elevated Cr 1.45 (baseline around 1) -CXR: L sided infiltrate -Ordered Levoquin 750mg IV once -Ordered 1L NS bolus and 125ml/hr maintenance fluids -Ordered BCx x 2 and POC lactate -POC lactate - 3.21 -Admit to [facility] hospitalist team: signed out pt to Dr. Natanael Werner Impression Primary Impression: Asthma exacerbation Additional Impression: Pneumonia Resident Involvement: Resident Care Provided Care Provided: Adult ED Departure Information Referrals No Doctor, Assigned (PCP) Patient Instructions [facility] Problem Qualifiers
[2017-08-15 00:56] LABS: BASO % 0.2 %; BASO ABS # 0.02 K/uL (0-0.2); EOS % 0.3 %; EOS ABS # 0.04 K/uL (0-0.5); HEMATOCRIT 43.8 % (42-52); HEMOGLOBIN 14.9 g/dL (14.0-18.0); IG# 0.03 K/uL (0.00-0.02); LYMPH % 17.4 %; MEAN CELL VOLUME 85.7 fL (80-100); MEAN CORPUSCULAR HEMOGLOBIN 29.2 pg (25-34); MEAN PLATELET VOLUME 10.5 fL (7.4-10.4); MONO % 10.9 %; MONO ABS # 1.38 K/uL (0.11-0.59); NEUT ABS # 8.98 K/uL (1.4-6.5); PLATELET COUNT 280 K/uL (130-400); RED CELL DISTRIBUTION WIDTH CV 14.2 % (11.5-14.5); WHITE BLOOD COUNT 12.65 K/uL (4.8-10.8)
[2017-08-15 01:13] LABS: INFLUENZA B ANTIGEN Neg for Influ B (NEG)
[2017-08-15 01:15] LABS: CALCIUM 8.3 mg/dl (8.5-10.1); CREATININE 1.45 mg/dl (0.60-1.40); POTASSIUM 3.4 mmol/L (3.5-5.1)
[2017-08-15] MEDS ORDERED: SODIUM CHLORIDE 0.9% 1000ML 1,000 ML IV STA (01:24)
[2017-08-15] MEDS ORDERED: SODIUM CHLORIDE 0.9% 500ML 500 ML IV STA (01:24)
[2017-08-15] MEDS ORDERED: LEVAQUIN 750MG / 150ML D5W IV STA (01:24)
[2017-08-15] MEDS ORDERED: ESCI1TAB6 PO (01:52)
[2017-08-15] MEDS ORDERED: HYDR25TA4 PO (01:52)
--- NOTE | 2017-08-15 02:24 | EMERGENCY ROOM VISIT NOTE ---
History Report prepared by Karina: Charbel Lewis Under the Supervision of: Dr. Felicity Collins M.D. First contact with patient: 23:54 Chief Complaint: RESPIRATORY PROBLEMS Stated Complaint: RESPIRTORY DIFFICULTY Nursing Triage Summary: Pt arrived via [facility] from home. Pt reports he has had SOB x3 days. Seen at [facility] today and given 2x neb tx and discharged on prednisone. Reports he developed severe SOB/asthma attack tonight. EMS called. Pt given 3x neb enroute and 650 NSS via IV. Hx of asthma and hospital admission for asthma. History of Present Illness The patient is a 27 year old male who presents to the Emergency Room by EMS with complaints of worsening shortness of breath beginning three days ago. His symptoms worsened significantly 6.5 hours ago. He also complains of a cough and sore throat. The patient was seen for similar symptoms at the [place] ED three days ago and was started on Prednisone. He has a history of asthma and feels that his symptoms are likely an asthma exacerbation related to the cold temperatures. He has used a nebulizer treatment without success. The patient denies fevers, chills, nausea, or vomiting. Source of History: patient Onset: Three days ago Quality: other (shortness of breath) Timing: worsening Associated Symptoms: + sorethroat, + cough, No fevers, No chills, No nausea , No vomiting Review of Systems See HPI for pertinent positives & negatives. A total of 10 systems reviewed and were otherwise negative. Past Medical & Surgical Medical Problems: (1) ADD (attention deficit disorder) (2) Allergic rhinitis (3) Allergy to shellfish (4) Asthma (5) Asthma (6) Asthma, Unspecified (7) Generalized anxiety disorder (8) GERD (gastroesophageal reflux disease) (9) Migraines (10) Personal History, Pneumonia (Recurrent) (11) Tobacco Use Disorder Family History Asthma FATHER BROTHER AUNT Cancer Diabetes mellitus Gallbladder disease Heart disease Hypertension Social History Smoking Status: Never Smoker Alcohol Use: occasionally Drug Use: none Marital Status: single Occupation Status: employed Current/Historical Medications Scheduled Bupropion (Wellbutrin Sr), 200 MG PO DAILY Escitalopram Oxalate (Lexapro), 1 TAB PO DAILY Fluticasone Furoate-Vilanterol (Breo Ellipta 200-25 Mcg/INH), 1 PUFF INH DAILY Fluticasone Propionate (Nasal) (Flonase Allergy Relief), 2 SPRAYS NA DAILY Hydrochlorothiazide (Hctz), 25 MG PO DAILY Montelukast Sodium (Singulair), 10 MG PO HS Omeprazole (Prilosec), 20 MG PO BID Miscellaneous Medications Epinephrine (Epipen 2-Renato) Allergies Coded Allergies: Shellfish (Verified Allergy, Severe, throat tightness and hives, 08/15/17) Penicillins (Verified Allergy, Intermediate, HIVES, 08/15/17) Iodinated Diagnostic Agents (Verified Allergy, Unknown, ., 08/15/17) Physical Exam Vital Signs Date Time Temp Pulse Resp B/P (MAP) Pulse Ox O2 Delivery O2 Flow Rate FiO2 08/15/17 02:35 128 25 95 Nasal Cannula 4.0 08/15/17 02:30 144/67 08/15/17 02:30 128 22 144/67 96 Nasal Cannula 4.0 08/15/17 02:05 130 17 95 Nasal Cannula 4.0 08/15/17 02:00 144/69 08/15/17 01:35 139 21 98 Nebulizer 08/15/17 01:30 131/71 08/15/17 01:05 135 21 98 Nebulizer 08/15/17 01:00 114/82 08/15/17 00:35 137 21 99 Nebulizer 08/15/17 00:30 121/81 08/15/17 00:24 140 24 94 Nasal Cannula 6.0 08/15/17 00:20 139 16 94 Nasal Cannula 6.0 08/15/17 00:00 104/68 08/14/17 23:56 145 08/14/17 23:54 132/97 08/14/17 23:50 88 Room Air 08/14/17 23:50 37.6 150 30 132/97 88 Room Air 08/14/17 23:50 88 Room Air Physical Exam Vital signs reviewed. General: Obese, well-appearing male, in no significant distress. Disheveled. Nasal canula oxygen in place. HEENT: No scleral icterus, PERRLA, neck supple. Atraumatic. Cardiovascular: Tachycardic rate with a normal rhythm, no extra sounds. Pulmonary: Diffuse wheezing throughout all lung-whittaker. Increased work of breathing. Abdomen: Soft, nontender, nondistended, positive bowel sounds. Musculoskeletal: Atraumatic, no peripheral edema. Neurologic: Patient awake alert and oriented x 3 Skin: Warm, dry, no rash Medical Decision & Procedures ER Provider Diagnostic Interpretation: One View Chest X-ray interpreted by me: hyperinflated lungs. Prominent interstitium with likely left lower lung field infiltrate. Laboratory Results 08/15/17 00:45 Red Blood Count 5.11, Mean Corpuscular Volume 85.7, Mean Corpuscular Hemoglobin 29.2, Mean Corpuscular Hemoglobin Concent 34.0, Mean Platelet Volume 10.5, Neutrophils (%) (Auto) 71.0, Lymphocytes (%) (Auto) 17.4, Monocytes (%) (Auto) 10.9, Eosinophils (%) (Auto) 0.3, Basophils (%) (Auto) 0.2, Neutrophils # (Auto ) 8.98, Lymphocytes # (Auto) 2.20, Monocytes # (Auto) 1.38, Eosinophils # (Auto ) 0.04, Basophils # (Auto) 0.02 Test 08/15/17 00:40 08/15/17 00:45 08/15/17 01:59 Influenza Type A Antigen Neg for Influ A (NEG) Influenza Type B Antigen Neg for Influ B (NEG) White Blood Count 12.65 K/uL (4.8-10.8) Red Blood Count 5.11 M/uL (4.7-6.1) Hemoglobin 14.9 g/dL (14.0-18.0) Hematocrit 43.8 % (42-52) Mean Corpuscular Volume 85.7 fL (80-100) Mean Corpuscular Hemoglobin 29.2 pg (25-34) Mean Corpuscular Hemoglobin Concent 34.0 g/dl (32-36) Platelet Count 280 K/uL (130-400) Mean Platelet Volume 10.5 fL (7.4-10.4) Neutrophils (%) (Auto) 71.0 % Lymphocytes (%) (Auto) 17.4 % Monocytes (%) (Auto) 10.9 % Eosinophils (%) (Auto) 0.3 % Basophils (%) (Auto) 0.2 % Neutrophils # (Auto) 8.98 K/uL (1.4-6.5) Lymphocytes # (Auto) 2.20 K/uL (1.2-3.4) Monocytes # (Auto) 1.38 K/uL (0.11-0.59) Eosinophils # (Auto) 0.04 K/uL (0-0.5) Basophils # (Auto) 0.02 K/uL (0-0.2) RDW Standard Deviation 44.0 fL (36.4-46.3) RDW Coefficient of Variation 14.2 % (11.5-14.5) Immature Granulocyte % (Auto) 0.2 % Immature Granulocyte # (Auto) 0.03 K/uL (0.00-0.02) Est Creatinine Clear Calc Drug Dose 99.8 ml/min Bedside Lactic Acid Venous 3.21 mmol/L (0.90-1.70) Laboratory results per my review. Medications Administered Medications (Trade) Dose Ordered Sig/Cassidy Route Start Time Stop Time Status Last Admin Dose Admin Methylprednisolone Sodium Succinate (Solu-Medrol IV) 125 mg NOW STAT IV 08/15/17 00:11 08/15/17 00:12 DC 08/15/17 00:50 125 MG Albuterol/ Ipratropium (Duoneb) 12 ml ONE ONCE INH 08/15/17 00:15 08/15/17 00:16 DC 08/15/17 00:20 12 ML Magnesium Sulfate (Magnesium Sulfate) 2 gm NOW STAT IV 08/15/17 00:21 08/15/17 00:23 DC 08/15/17 00:50 2 GM Sodium Chloride 500 ml @ 999 mls/hr Q31M STAT IV 08/15/17 01:24 08/15/17 01:54 DC 08/15/17 01:24 999 MLS/HR Levofloxacin (Levaquin / D5W) 750 mg NOW STAT IV 08/15/17 01:24 08/15/17 01:26 DC 08/15/17 01:55 750 MG ED Course 2356: Past medical records reviewed. The patient was evaluated in room A10. A complete history and physical examination was performed. 0011: Ordered Solu-Medrol 125 mg IV. 0015: Ordered DuoNeb 12 mL INH. 0021: Ordered Magnesium Sulfate 2 gm IV. 0124: Ordered Levaquin / D5W 750 mg IV, Sodium Chloride 1000 ml @ 125 mls/hr IV , Sodium Chloride 500 ml @ 999 mls/hr IV. 0205: Upon reevaluation, the patient is resting comfortably. I discussed laboratory and radiographic results with her. She verbalized agreement of the treatment plan. The patient will be evaluated for further management and care. Medical Decision Differential diagnosis: Etiologies such as infections, reactive airway disease, pneumonia, pneumothorax , COPD, CHF, cardiac ischemia, pulmonary embolism, musculoskeletal, gastrointestinal, as well as others were entertained. This patient was evaluated and appeared to be in no significant distress. IV access was obtained and laboratory work was drawn. The patient was placed on the hospital monitor and found to be in a sinus tachycardia. The patient was given IV Solu-Medrol, an hour-long DuoNeb treatment. Chest x-ray reveals a left lower lung field infiltrate to my interpretation. Blood cultures were obtained and the patient was medicated with IV Levaquin. Lactic acid is elevated at 4.4. Patient was hydrated with normal saline solution. He was given magnesium 2 g IV. Patient's case was discussed with the hospitalist service and will be admitted for further management. Medication Reconcilliation Current Medication List: was personally reviewed by me Blood Pressure Screening Patient's blood pressure: Normal blood pressure Blood pressure disposition: Did not require urgent referral Consults Time Called: [phone] Consulting Physician: Dr. Alphonso Park Returned Call: [phone] I reviewed the patient's case with Dr. Werner. Joseph will evaluate the patient for further management. Impression Primary Impression: Pneumonia Additional Impression: Asthma exacerbation Scribe Attestation The scribe's documentation has been prepared under my direction and personally reviewed by me in its entirety. I confirm that the note above accurately reflects all work, treatment, procedures, and medical decision making performed by me. Departure Information Dispostion Being Evaluated By Hospitalist Referrals No Doctor, Assigned (PCP) Patient Instructions My [facility] Problem Qualifiers Primary Impression: Pneumonia
[2017-08-15] MEDS ORDERED: LEVALBUTEROL/IPRATROPIUM NEB INH SCH (02:45)
[2017-08-15] MEDS: IPRATROPIUM BROMIDE NEB SOLN 0.02% 2.5 ML VIAL INH SCH ×6 (02:58→23:09)
[2017-08-15] MEDS: LEVALBUTEROL 1.25MG/0.5ML NEB INH SCH ×6 (02:58→23:10)
[2017-08-15] MEDS ORDERED: ACETAMINOPHEN 325 MG TAB PO PRN (03:00)
--- NOTE | 2017-08-15 03:03 | History and Physical ---
History & Physical Date & Time of Service: Aug 15, 2017 at 02:50 Chief Complaint: Respirtory Difficulty Primary Care Physician: Chad Stevens D.OAmrik History of Present Illness Source: patient, clinic records 27 year old male with history of Moderate Persistent Asthma, Obesity, and other problems below presenting with shortness of breath and cough x [address] Stevens for Primary Care. Patient states he was doing fine until 3 days ago when he started to have increasing shortness of breath and dry, hacking cough. He then went to an urgent care the next day, and was given a course of Prednisone 40mg po daily, with no relief of symptoms. He returned to that facility this afternoon around 3pm, was given breathing treatment and sent home. Patient had progression of symptoms prompting consult to the ER. At the ER, patient's o2 sat was 88% on room air, HR 150s. CXR showed possible left lower lobe pneumonia. Solumedrol 125mg IV, Duoneb, Levaquin IV was given. On exam, patient was seen sitting up in bed, not in distress, on 6 liters NC, saturating 94%, has some accessory muscle use when speaking. He states he is feeling improved compared to arrival. Denies other symptoms. Past Medical/Surgical History Medical Problems: (1) ADD (attention deficit disorder) Status: Chronic (2) Allergic rhinitis Status: Chronic (3) Allergy to shellfish Status: Chronic (4) Asthma Status: Chronic (5) Asthma Status: Chronic (6) Generalized anxiety disorder Status: Chronic (7) GERD (gastroesophageal reflux disease) Status: Chronic (8) Migraines Status: Chronic (9) Tobacco Use Disorder Status: Chronic Family History Asthma FATHER BROTHER AUNT Cancer Diabetes mellitus Gallbladder disease Heart disease Hypertension Social History Smoking Status: Never Smoker Drug Use: none Marital Status: single Housing status: lives with family Occupational Status: employed Immunizations History of Influenza Vaccine: Yes Influenza Vaccine Date: May 10, 2015 History of Pneumococcal: Yes Pneumococcal Date: Apr 04, 2015 Allergies Coded Allergies: Shellfish (Verified Allergy, Severe, throat tightness and hives, 08/15/17) Penicillins (Verified Allergy, Intermediate, HIVES, 08/15/17) Iodinated Diagnostic Agents (Verified Allergy, Unknown, ., 08/15/17) Home Medications Scheduled Bupropion (Wellbutrin Sr), 200 MG PO DAILY Escitalopram Oxalate (Lexapro), 1 TAB PO DAILY Fluticasone Furoate-Vilanterol (Breo Ellipta 200-25 Mcg/INH), 1 PUFF INH DAILY Fluticasone Propionate (Nasal) (Flonase Allergy Relief), 2 SPRAYS NA DAILY Hydrochlorothiazide (Hctz), 25 MG PO DAILY Montelukast Sodium (Singulair), 10 MG PO HS Omeprazole (Prilosec), 20 MG PO BID Miscellaneous Medications Epinephrine (Epipen 2-Renato) Review of Systems = Constitutional- no fever; no weight loss Eyes- no acute visual changes ENT- no sinus drainage; no pharyngitis Pulmonary- (+) as noted above Cardiac- no chest pain, no palpitations, no orthopnea, no dependent edema GI- no nausea, no vomiting, no diarrhea, no melena, no hematochezia - no dysuria, no hematuria Musculoskeletal- (+) back pain attributed to coughing Derm- no rashes, no new skin lesions, no changing skin lesions Hematologic- no unusual bruising, no unusual bleeding Lymphatics- no adenopathy Endocrine- no polyuria or polydipsia; no heat or cold intolerance Neuro- no headaches, no focal neurologic symptoms Psych- no anxiety, no depression Physical Exam Vital Signs Date Time Temp Pulse Resp B/P (MAP) Pulse Ox O2 Delivery O2 Flow Rate FiO2 08/15/17 02:30 128 22 144/67 96 Nasal Cannula 4.0 08/15/17 00:30 121/81 08/15/17 00:24 140 24 94 Nasal Cannula 6.0 08/15/17 00:20 139 16 94 Nasal Cannula 6.0 08/15/17 00:00 104/68 08/14/17 23:56 145 08/14/17 23:54 132/97 08/14/17 23:50 88 Room Air 08/14/17 23:50 37.6 150 30 132/97 88 Room Air 08/14/17 23:50 88 Room Air General Appearance: WD/WN, no apparent distress, + obese Head: normocephalic, atraumatic Eyes: normal inspection, PERRL, EOMI, sclerae normal ENT: normal ENT inspection, hearing grossly normal, pharynx normal Neck: supple, no adenopathy, thyroid normal, no JVD, trachea midline Respiratory/Chest: + rhonchi (scattered, moderate rhonchi), + wheezing ( scattered, moderate wheezing bilaterally) Cardiovascular: no edema, no JVD, no murmur, normal peripheral pulses, + tachycardia Abdomen/GI: normal bowel sounds, non tender, soft Back: normal inspection, no CVA tenderness Extremities/Musculoskelatal: normal inspection, no calf tenderness, no pedal edema, normal range of motion, non-tender Neurologic/Psych: staff genetic counselor II-XII nml as tested, no motor/sensory deficits, alert, normal mood/affect, oriented x 3 Skin: normal color, warm/dry, no rash Lymphatic: no adenopathy Diagnostics Laboratory Results Results Past 24 Hours Test 08/15/17 00:40 08/15/17 00:45 08/15/17 01:59 Range/Units Influenza Type A Antigen Neg for Influ A NEG Influenza Type B Antigen Neg for Influ B NEG White Blood Count 12.65 4.8-10.8 K/uL Red Blood Count 5.11 4.7-6.1 M/uL Hemoglobin 14.9 14.0-18.0 g/dL Hematocrit 43.8 42-52 % Mean Corpuscular Volume 85.7 80-100 fL Mean Corpuscular Hemoglobin 29.2 25-34 pg Mean Corpuscular Hemoglobin Concent 34.0 32-36 g/dl Platelet Count 280 130-400 K/uL Mean Platelet Volume 10.5 7.4-10.4 fL Neutrophils (%) (Auto) 71.0 % Lymphocytes (%) (Auto) 17.4 % Monocytes (%) (Auto) 10.9 % Eosinophils (%) (Auto) 0.3 % Basophils (%) (Auto) 0.2 % Neutrophils # (Auto) 8.98 1.4-6.5 K/uL Lymphocytes # (Auto) 2.20 1.2-3.4 K/uL Monocytes # (Auto) 1.38 0.11-0.59 K/uL Eosinophils # (Auto) 0.04 0-0.5 K/uL Basophils # (Auto) 0.02 0-0.2 K/uL RDW Standard Deviation 44.0 36.4-46.3 fL RDW Coefficient of Variation 14.2 11.5-14.5 % Immature Granulocyte % (Auto) 0.2 % Immature Granulocyte # (Auto) 0.03 0.00-0.02 K/uL Sodium Level 139 136-145 mmol/L Potassium Level 3.4 3.5-5.1 mmol/L Chloride Level 106 98-107 mmol/L Carbon Dioxide Level 26 21-32 mmol/L Anion Gap 7.0 3-11 mmol/L Blood Urea Nitrogen 15 7-18 mg/dl Creatinine 1.45 0.60-1.40 mg/dl Est Creatinine Clear Calc Drug Dose 99.8 ml/min Estimated GFR () 75.4 Estimated GFR (Non- 65.1 BUN/Creatinine Ratio 10.7 10-20 Random Glucose 134 70-99 mg/dl Calcium Level 8.3 8.5-10.1 mg/dl Bedside Lactic Acid Venous 3.21 0.90-1.70 mmol/L Microbiology Results 08/15/17 Blood Culture, Received Pending 08/15/17 Blood Culture, Received Pending Diagnostic Radiology CXR possible Left Lowe Lobe infiltrate- official read pending EKG HR 11, sinus rhythm, no acute ischemia/infarct Impression Assessment and Plan 27 year old male with history of Moderate Persistent Asthma, Obesity, and other problems below presenting with shortness of breath and cough x 3 days. ACUTE HYPOXIC RESPIRATORY FAILURE SECONDARY TO ACUTE ASTHMA EXACERBATION POSSIBLE PNEUMONIA - history of moderate persistent asthma on Breo, Spiriva, Ventolin, Montelukast - started Prednisone 40mg po daily 2 days ago with no improvement - O2 sats on admisison 88% - CXR possible Left LL pneumonia, ff up official read may need 2view CXR when respiratory status stabilizes - Flu negative - ABG ordered Sputum GS/CS empiric Levaquin IV Solumedrol 60mg q8h Nebs q4h HYPOKALEMIA - PO K ordered monitor ELEVATED LACTIC ACID - LA 3.2 from hypoxia? - NSS started repeat LA in the morning SAJI/PTSD HISTORY - stable - continue Wellbutrin, Abilify, Lexapro GERD - continue Omeprazole DVT PROPHYLAXIS - Lovenox FULL CODE PER PATIENT ANTICIPATE D/C HOME WHEN MEDICALLY STABLE FF UP WITH PCP DR. STEVENS VTE Prophylaxis VTE Risk Assessment Done? Y/N: Yes Risk Level: Moderate Given or contraindicated: Enoxaparin (Lovenox)SQ
[2017-08-15] MEDS ORDERED: POTASSIUM CHLORIDE 10 MEQ TABCR PO STA (03:25)
[2017-08-15] MEDS: SODIUM CHLORIDE 0.9% 1000ML 1,000 ML IV SCH ×2 (05:12→12:55)
--- NOTE | 2017-08-15 06:30 | DIAGNOSTIC IMAGING REPORT ---
CHEST ONE VIEW PORTABLE CLINICAL HISTORY: 27 years-old Male presenting with cough, sob. TECHNIQUE: Portable upright AP view of the chest was obtained. COMPARISON: 08/14/2016. FINDINGS: Cardiomediastinal silhouette normal. Apparent vague opacity at the left lung base. No large effusion or pneumothorax. Osseous structures normal. Upper abdomen normal. IMPRESSION: 1. Apparent vague opacity at the left lung base raises concern for infection. Dedicated PA and lateral views recommended for further confirmation. The report will be called/faxed according to standard departmental protocol. Electronically signed by: Kumar Marmolejo M.D. 08/15/2017 6:29 AM Dictated Date/Time: 08/15/2017 6:27 AM
[2017-08-15] MEDS ORDERED: ESCI1TAB10 PO (07:41)
[2017-08-15 07:44] LABS: CALCIUM 8.4 mg/dl (8.5-10.1); CREATININE 1.42 mg/dl (0.60-1.40)
[2017-08-15] MEDS: FLUTICASONE PROPIONATE NA SPR 16 GM BTL SCH (07:56)
[2017-08-15] MEDS: METHYLPREDNISOLONE IV 60 MG in SYRINGE 0 ML IV SCH ×3 (07:56→23:15)
[2017-08-15] MEDS: ARIPIprazole TAB 10 MG TAB PO SCH (07:57)
[2017-08-15] MEDS: HYDROCHLOROTHIAZIDE 25 MG TAB PO SCH (07:57)
[2017-08-15] MEDS: PANTOprazole SOD 40 MG TAB PO SCH ×2 (07:57→20:24)
[2017-08-15] MEDS: BuPROPion SR 100 MG TABCR PO SCH ×2 (07:57→20:25)
[2017-08-15] MEDS: ENOXAPARIN 40 MG/0.4 ML SYR SC SCH (08:16)
[2017-08-15] MEDS: ESCITALOPRAM OXALATE 20 MG TAB PO SCH (08:16)
[2017-08-15 09:02] LABS: INFLUENZA A PCR Neg for Influ A (NEG); INFLUENZA B PCR Neg for Influ B (NEG)
--- NOTE | 2017-08-15 15:16 | DIAGNOSTIC IMAGING REPORT ---
CHEST 2 VIEWS ROUTINE CLINICAL HISTORY: 27 years-old Male presenting with diffuse wheezing, L infiltrate. TECHNIQUE: PA and lateral views of the chest were obtained. COMPARISON: 08/15/2017 at 12:25 AM. FINDINGS: Multiple external leads degrade image quality. Cardiomediastinal silhouette normal. Persistent vague opacity in the left lower lung without convincing correlate on lateral radiograph. Osseous structures normal. Upper abdomen normal. IMPRESSION: 1. Apparent vague opacity at the left lung base is not apparent on lateral view and may be artifactual related to vascular structures minimal atelectasis. Electronically signed by: Kumar Marmolejo M.D. 08/15/2017 3:15 PM Dictated Date/Time: 08/15/2017 3:14 PM
[2017-08-15] MEDS ORDERED: NURSING VERBAL MED ORDER ONE ×2 (15:30→18:45)
--- NOTE | 2017-08-15 15:53 | Progress Note ---
Medicine Progress Note Date & Time of Visit: Aug 15, 2017 at 14:26. Subjective 27 year old male with history of Moderate Persistent Asthma and Obesity presenting with shortness of breath and cough x 3 days. Reports improvement today. Is ambulatory. Objective Last 8 Hrs Date Time Temp Pulse Resp B/P (MAP) Pulse Ox O2 Delivery O2 Flow Rate FiO2 08/15/17 12:04 36.6 106 24 118/69 (85) 91 Room Air 08/15/17 12:00 Nasal Cannula 4.0 08/15/17 11:15 115 18 97 Room Air 08/15/17 08:25 36.8 110 26 135/74 (94) 92 Room Air 08/15/17 08:00 Nasal Cannula 4.0 08/15/17 07:29 109 24 95 Nasal Cannula 4.0 Physical Exam: GEN:obese, in no acute distress, alert and appropriate HEENT: NC/AT, PERRL, normal sclerae, MMM, no conversational dyspnea or SOB at rest. CARDIO: reg rate, S1/2 heard without m/g/r LUNGS: diffuse wheezing throughout all lung whittaker. ABD: soft, non-tender, non-distended, no rebound or guarding EXTREMITY: RP and DP palpable 2+ bilat, no LE swelling or edema, extremities are warm and well-perfused NEURO: CN 2-12 grossly intact MUSC: 5/5 strength throughout, no focal deficits SKIN: warm and dry Laboratory Results: 08/15/17 00:45 Red Blood Count 5.11, Mean Corpuscular Volume 85.7, Mean Corpuscular Hemoglobin 29.2, Mean Corpuscular Hemoglobin Concent 34.0, Mean Platelet Volume 10.5, Neutrophils (%) (Auto) 71.0, Lymphocytes (%) (Auto) 17.4, Monocytes (%) (Auto) 10.9, Eosinophils (%) (Auto) 0.3, Basophils (%) (Auto) 0.2, Neutrophils # (Auto ) 8.98, Lymphocytes # (Auto) 2.20, Monocytes # (Auto) 1.38, Eosinophils # (Auto ) 0.04, Basophils # (Auto) 0.02 08/15/17 06:56 Test 08/15/17 00:40 08/15/17 00:45 08/15/17 01:59 08/15/17 03:23 Influenza Type A Antigen Neg for Influ A (NEG) Influenza Type B Antigen Neg for Influ B (NEG) White Blood Count 12.65 K/uL (4.8-10.8) Red Blood Count 5.11 M/uL (4.7-6.1) Hemoglobin 14.9 g/dL (14.0-18.0) Hematocrit 43.8 % (42-52) Mean Corpuscular Volume 85.7 fL (80-100) Mean Corpuscular Hemoglobin 29.2 pg (25-34) Mean Corpuscular Hemoglobin Concent 34.0 g/dl (32-36) Platelet Count 280 K/uL (130-400) Mean Platelet Volume 10.5 fL (7.4-10.4) Neutrophils (%) (Auto) 71.0 % Lymphocytes (%) (Auto) 17.4 % Monocytes (%) (Auto) 10.9 % Eosinophils (%) (Auto) 0.3 % Basophils (%) (Auto) 0.2 % Neutrophils # (Auto) 8.98 K/uL (1.4-6.5) Lymphocytes # (Auto) 2.20 K/uL (1.2-3.4) Monocytes # (Auto) 1.38 K/uL (0.11-0.59) Eosinophils # (Auto) 0.04 K/uL (0-0.5) Basophils # (Auto) 0.02 K/uL (0-0.2) RDW Standard Deviation 44.0 fL (36.4-46.3) RDW Coefficient of Variation 14.2 % (11.5-14.5) Immature Granulocyte % (Auto) 0.2 % Immature Granulocyte # (Auto) 0.03 K/uL (0.00-0.02) Bedside Lactic Acid Venous 3.21 mmol/L (0.90-1.70) Arterial Blood pH 7.43 (7.35-7.45) Arterial Blood Partial Pressure CO2 32 mmHg (35-46) Arterial Blood Partial Pressure O2 81 mm/Hg (80-95) Arterial Blood HCO3 21 mmol/L (19-24) Arterial Blood Oxygen Saturation 95.6 % (90-95) Arterial Blood Base Excess -2.3 mEq/L (-9-1.8) Arterial Blood Gas Delivery 4 L Harshal Test POS (POS) Test 08/15/17 06:41 08/15/17 06:56 08/15/17 07:50 08/15/17 07:57 Prothrombin Time 10.9 SECONDS (9.0-12.0) Prothromb Time International Ratio 1.0 (0.9-1.1) Anion Gap 10.0 mmol/L (3-11) Est Creatinine Clear Calc Drug Dose 101.0 ml/min Estimated GFR () 77.4 Estimated GFR (Non- 66.7 BUN/Creatinine Ratio 10.1 (10-20) Calcium Level 8.4 mg/dl (8.5-10.1) Influenza Type A (RT-PCR) Neg for Influ A (NEG) Influenza Type B (RT-PCR) Neg for Influ B (NEG) Bedside Glucose 197 mg/dl (70-99) Test 08/15/17 12:31 Lactic Acid Level 3.6 mmol/L (0.4-2.0) Date/Time Source Procedure Growth Status 08/15/17 01:51 Blood Blood Culture Pending Received Last 24 Hours Test 08/15/17 00:40 08/15/17 00:45 08/15/17 01:59 08/15/17 03:23 Influenza Type A Antigen Neg for Influ A Influenza Type B Antigen Neg for Influ B White Blood Count 12.65 K/uL Red Blood Count 5.11 M/uL Hemoglobin 14.9 g/dL Hematocrit 43.8 % Mean Corpuscular Volume 85.7 fL Mean Corpuscular Hemoglobin 29.2 pg Mean Corpuscular Hemoglobin Concent 34.0 g/dl Platelet Count 280 K/uL Mean Platelet Volume 10.5 fL Neutrophils (%) (Auto) 71.0 % Lymphocytes (%) (Auto) 17.4 % Monocytes (%) (Auto) 10.9 % Eosinophils (%) (Auto) 0.3 % Basophils (%) (Auto) 0.2 % Neutrophils # (Auto) 8.98 K/uL Lymphocytes # (Auto) 2.20 K/uL Monocytes # (Auto) 1.38 K/uL Eosinophils # (Auto) 0.04 K/uL Basophils # (Auto) 0.02 K/uL RDW Standard Deviation 44.0 fL RDW Coefficient of Variation 14.2 % Immature Granulocyte % (Auto) 0.2 % Immature Granulocyte # (Auto) 0.03 K/uL Sodium Level 139 mmol/L Potassium Level 3.4 mmol/L Chloride Level 106 mmol/L Carbon Dioxide Level 26 mmol/L Anion Gap 7.0 mmol/L Blood Urea Nitrogen 15 mg/dl Creatinine 1.45 mg/dl Est Creatinine Clear Calc Drug Dose 99.8 ml/min Estimated GFR () 75.4 Estimated GFR (Non- 65.1 BUN/Creatinine Ratio 10.7 Random Glucose 134 mg/dl Calcium Level 8.3 mg/dl Bedside Lactic Acid Venous 3.21 mmol/L Arterial Blood pH 7.43 Arterial Blood Partial Pressure CO2 32 mmHg Arterial Blood Partial Pressure O2 81 mm/Hg Arterial Blood HCO3 21 mmol/L Arterial Blood Oxygen Saturation 95.6 % Arterial Blood Base Excess -2.3 mEq/L Arterial Blood Gas Delivery 4 L Harshal Test POS Test 08/15/17 06:41 08/15/17 06:56 08/15/17 07:50 08/15/17 07:57 Prothrombin Time 10.9 SECONDS Prothromb Time International Ratio 1.0 Lactic Acid Level 4.4 mmol/L Sodium Level 135 mmol/L Potassium Level 4.0 mmol/L Chloride Level 104 mmol/L Carbon Dioxide Level 21 mmol/L Anion Gap 10.0 mmol/L Blood Urea Nitrogen 14 mg/dl Creatinine 1.42 mg/dl Est Creatinine Clear Calc Drug Dose 101.0 ml/min Estimated GFR () 77.4 Estimated GFR (Non- 66.7 BUN/Creatinine Ratio 10.1 Random Glucose 194 mg/dl Calcium Level 8.4 mg/dl Influenza Type A (RT-PCR) Neg for Influ A Influenza Type B (RT-PCR) Neg for Influ B Bedside Glucose 197 mg/dl Test 08/15/17 12:31 Lactic Acid Level 3.6 mmol/L Date/Time Source Procedure Growth Status 08/15/17 01:51 Blood Blood Culture Pending Received 08/15/17 00:45 Blood Blood Culture Pending Received Assessment & Plan 27 year old male with history of Moderate Persistent Asthma and Obesity presenting with shortness of breath and cough x 3 days. 1. Acute hypoxic respiratory failure 2/2 acute asthma exacerbation. Possibly viral induced. Pt is a smoker. No pneumonia seen on xray repeat. Significant wheezing present on exam. Cont IV Solumedrol, Levaquin and bronchodilators. Cont tele. Pt is off oxygen at this time and is reporting improvement. 2. Elevated lactate-uncertain etiology. Although he is tolerating PO will cont IVF and trend lactate until improves. 3. SAJI/PTSD-Welbutrin, Abilify, Lexapro 4. GERD-PPI 5. WAYNE-cont IVF and repeat PRP 6. Smoker-counseled to quit, options given to him. DVT proph-Lovenox Full code Dispo to home in 1-2 days. Nadya Hermosillo DO [facility] Hospitalist Current Inpatient Medications: Current Inpatient Medications Medications (Trade) Dose Ordered Sig/Cassidy Route Start Time Stop Time Status Last Admin Dose Admin Methylprednisolone Sodium Succinate 60 mg/Syringe 0.96 ml @ 1.5 mls/min Q8H IV 08/15/17 08:00 09/14/17 07:59 08/15/17 07:56 1.5 MLS/MIN Levofloxacin 500 mg/Prmx 100 ml @ 100 mls/hr Q24H IV 08/16/17 02:00 08/21/17 02:59 Sodium Chloride 1,000 ml @ 125 mls/hr Q8H IV 08/15/17 05:00 09/14/17 04:59 08/15/17 12:55 125 MLS/HR Bupropion HCl (Wellbutrin-Sr Tab) 200 mg BID PO 08/15/17 09:00 09/14/17 08:59 08/15/17 07:57 200 MG Fluticasone Propionate (Flonase Nasal [place]) 2 sprays DAILY NA 08/15/17 09:00 09/14/17 08:59 08/15/17 07:56 2 SPRAYS Hydrochlorothiazide (Hydrochlorothiazide Tab) 25 mg DAILY PO 08/15/17 09:00 09/14/17 08:59 08/15/17 07:57 25 MG Montelukast Sodium (Singulair Tab) 10 mg HS PO 08/15/17 21:00 09/14/17 20:59 Miscellaneous Information (Order Awaiting Action) 1 ea QS N/A 08/15/17 08:00 09/14/17 07:59 Pantoprazole Sodium (Protonix Tab) 40 mg BID PO 08/15/17 09:00 09/14/17 08:59 08/15/17 07:57 40 MG Aripiprazole (Abilify Tab) 10 mg QAM PO 08/15/17 09:00 09/14/17 08:59 08/15/17 07:57 10 MG Enoxaparin Sodium (Lovenox Inj) 40 mg Q24H SC 08/15/17 09:00 09/14/17 08:59 08/15/17 08:16 40 MG Acetaminophen (Tylenol Tab) 650 mg Q4H PRN PO 08/15/17 03:00 09/14/17 02:59 Ipratropium [place] (Atrovent 0.02% 0.5MG/2.5ML Neb) 0.5 mg Q4R INH 08/15/17 04:00 09/14/17 03:59 08/15/17 11:15 0.5 MG Levalbuterol (Xopenex 1.25MG/ 0.5ML Neb) 1.25 mg Q4R INH 08/15/17 04:00 09/14/17 03:59 08/15/17 11:15 1.25 MG Escitalopram Oxalate (Lexapro Tab) 20 mg DAILY PO 08/15/17 09:00 09/14/17 08:59 08/15/17 08:16 20 MG
[2017-08-15] MEDS ORDERED: MONTELUKAST SOD 10 MG TAB PO SCH (21:00)
[2017-08-16] VITALS (9 sets, daily range): BP systolic 110–134; BP diastolic 74–87; PULSE 87–109; TEMP 36.4–36.7; O2SAT 92–96
[2017-08-16] MEDS ORDERED: LEVOFLOXACIN / D5W 500 MG in PREMIXED IN D5W 100 ML IV SCH (02:00)
[2017-08-16 06:36] LABS: HEMATOCRIT 41.3 % (42-52); MEAN CORPUSCULAR HEMOGLOBIN 28.8 pg (25-34); MEAN CORPUSCULAR HGB CONC 33.9 g/dl (32-36); MEAN PLATELET VOLUME 10.2 fL (7.4-10.4); PLATELET COUNT 296 K/uL (130-400); RED CELL DISTRIBUTION WIDTH CV 14.2 % (11.5-14.5); RED CELL DISTRIBUTION WIDTH SD 43.9 fL (36.4-46.3); WHITE BLOOD COUNT 11.15 K/uL (4.8-10.8)
[2017-08-16] MEDS: LEVALBUTEROL 1.25MG/0.5ML NEB INH SCH ×3 (07:15→15:05)
[2017-08-16] MEDS: IPRATROPIUM BROMIDE NEB SOLN 0.02% 2.5 ML VIAL INH SCH ×3 (07:15→15:05)
[2017-08-16 07:19] LABS: CALCIUM 8.9 mg/dl (8.5-10.1)
[2017-08-16] MEDS: METHYLPREDNISOLONE IV 60 MG in SYRINGE 0 ML IV SCH ×2 (08:00→15:33)
[2017-08-16] MEDS: FLUTICASONE PROPIONATE NA SPR 16 GM BTL SCH (09:00)
[2017-08-16] MEDS: ENOXAPARIN 40 MG/0.4 ML SYR SC SCH (09:00)
[2017-08-16] MEDS: HYDROCHLOROTHIAZIDE 25 MG TAB PO SCH (09:00)
[2017-08-16] MEDS: PANTOprazole SOD 40 MG TAB PO SCH (09:00)
[2017-08-16] MEDS: ARIPIprazole TAB 10 MG TAB PO SCH (09:00)
[2017-08-16] MEDS: BuPROPion SR 100 MG TABCR PO SCH (09:00)
[2017-08-16] MEDS: ESCITALOPRAM OXALATE 20 MG TAB PO SCH (09:00)
[2017-08-16] MEDS ORDERED: ARIP1TAB8 PO (15:11)
[2017-08-16] MEDS ORDERED: TIOT1SPR INH (15:12)
[2017-08-16] MEDS ORDERED: LEVO-18 PO (15:32)
[2017-08-16] MEDS ORDERED: PRD20 PO (15:32)
--- NOTE | 2017-08-16 15:35 | Discharge Instructions ---
Discharge Instructions Date of Service Aug 16, 2017. Admission Reason for Admission: Asthma Exacerbation Discharge Discharge Diagnosis / Problem: asthma exacerbation Discharge Goals Goal(s): Prevent Disease Progression Activity Recommendations Activity Limitations: per Instructions/Follow-up section . Instructions / Follow-Up Instructions / Follow-Up Please take all medications as instructed. You will need a follow-up appointment with your primary care provider within one week of discharge. One of our staff will contact you after the weekend to help schedule this. It is important that you quit smoking. You have been provided a prescription for nicotine gum to chew in place of smoking. It was a pleasure taking care of you! Call if you have any questions or problems. You can reach a [facility] hospitalist on duty at [facility] 24 hours a day by calling [phone]. Take care of yourself. Nadya Hermosillo DO [facility] Hospitalist Current Hospital Diet Patient's current hospital diet: AHA Diet (Heart Healthy) Discharge Diet Recommended Diet: AHA Diet (Heart Healthy) Procedures Procedures Performed: None. Pending Studies Studies pending at discharge: yes List of pending studies: Final blood cultures pending with preliminary results negative at discharge. Medical Emergencies . Who to Call and When: Medical Emergencies: If at any time you feel your situation is an emergency, please call 911 immediately. . Non-Emergent Contact Non-Emergency issues call your: Primary Care Provider . . "Provider Documentation" section prepared by Nadya Hermosillo. . VTE Core Measure Inpt VTE Proph given/why not?: Enoxaparin (Lovenox)SQ
--- NOTE | 2017-08-27 08:36 | Discharge Summary ---
Discharge Summary Date of Service Aug 27, 2017. Discharge Summary Admission Date: Aug 15, 2017 at 02:49 Discharge Date: Aug 16, 2017 Discharge Disposition: Home Principal Diagnosis: Acute hypoxic respiratory failure 2/2 acute asthma exacerbation SAJI/PTSD GERD Acute kidney injury Smoker Procedures: None. Vaccinations: None. Consultations: None. Pending Studies/Follow-Up: see instructions below. Medication Reconciliation New Medications: Prednisone (Prednisone) 20 Mg Tab 40 MG PO QD for 5 Days, #10 TAB Continued Medications: Aripiprazole (Abilify) 10 Mg Tab 10 MG PO DAILY, TAB Bupropion (Wellbutrin Sr) 200 Mg Ertab 200 MG PO DAILY, TAB Epinephrine (Epipen 2-Renato) 0.3 Mg Inj For a severe reaction: Inject in outer thigh following instructions on package and go to the Emergency room. Escitalopram Oxalate (Lexapro) 20 Mg Tab 20 MG PO DAILY for 30 Days, #30 TAB 5 Refills Fluticasone Furoate-Vilanterol (Breo Ellipta 200-25 Mcg/INH) 1 Inh Inh 1 PUFF INH DAILY Fluticasone Propionate (Nasal) (Flonase Allergy Relief) 50 Mcg/Act Spr 2 SPRAYS NA DAILY Hydrochlorothiazide (Hctz) 25 Mg Tab 25 MG PO DAILY, TAB Montelukast Sodium (Singulair) 10 Mg Tab 10 MG PO HS, TAB Omeprazole (Prilosec) 20 Mg Cap 20 MG PO BID, CAP Tiotropium [place] (Spiriva Respimat) 2.5 Mcg/Act Spr 2 PUFF INH DAILY, INHALER Admission Information HPI (per Admitting provider): 27 year old male with history of Moderate Persistent Asthma, Obesity, and other problems below presenting with shortness of breath and cough x [address] Cantu for Primary Care. Patient states he was doing fine until 3 days ago when he started to have increasing shortness of breath and dry, hacking cough. He then went to an urgent care the next day, and was given a course of Prednisone 40mg po daily, with no relief of symptoms. He returned to that facility this afternoon around 3pm, was given breathing treatment and sent home. Patient had progression of symptoms prompting consult to the ER. At the ER, patient's o2 sat was 88% on room air, HR 150s. CXR showed possible left lower lobe pneumonia. Solumedrol 125mg IV, Duoneb, Levaquin IV was given. On exam, patient was seen sitting up in bed, not in distress, on 6 liters NC, saturating 94%, has some accessory muscle use when speaking. He states he is feeling improved compared to arrival. Denies other symptoms. Physical Exam (per Admitting): General Appearance: WD/WN, no apparent distress, + obese Head: normocephalic, atraumatic Eyes: normal inspection, PERRL, EOMI, sclerae normal ENT: normal ENT inspection, hearing grossly normal, pharynx normal Neck: supple, no adenopathy, thyroid normal, no JVD, trachea midline Respiratory/Chest: + rhonchi (scattered, moderate rhonchi), + wheezing ( scattered, moderate wheezing bilaterally) Cardiovascular: no edema, no JVD, no murmur, normal peripheral pulses, + tachycardia Abdomen/GI: normal bowel sounds, non tender, soft Back: normal inspection, no CVA tenderness Extremities/Musculoskelatal: normal inspection, no calf tenderness, no pedal edema, normal range of motion, non-tender Neurologic/Psych: emergency telecommunications dispatcher II-XII nml as tested, no motor/sensory deficits, alert , normal mood/affect, oriented x 3 Skin: normal color, warm/dry, no rash Lymphatic: no adenopathy Hospital Course 27 yoM with asthma presents with worsening shortness of breath for three days that became significantly worse despite the use of outpatient prednisone and home nebulizers. In the ER he was oxygenating well on room air and appeared to be in no acute distress on exam. Telemetry revealed sinus tachycardia. He was given IV Solumedrol and an hour long Duoneb treatment. Chest x-ray revealed a lower left lung infiltrate, blood cultures were obtained and he was started on IV Levaquin. Lactic acid was elevated at 4.4 and he was hydrated with normal saline solution. He was given Magnesium 2gm IV. He was admitted to the Medicine Service. Flu was checked and was negative. He was continued on antibiotics and IV steroids for wheezing on exam. A follow-up two-view CXR confirmed that no infiltrate was present. The following day there was still diffuse wheezing present on exam and IV steroids were continued. Levaquin and bronchodilators were continued. He waxed and waned between needing 2L O2 and then not to maintain an appropriate oxygen saturation and the following day was oxygenating well on room air. As a result of family issues he requested to leave the hospital and continue his treatment at home. He was discharged in fair condition on oral steroids with close followup with PCP within the next few days. Physical exam at time of discharge revealed that he was not in respiratory distress, was ambulating at baseline and tolerating PO, and that he had present but improved wheezing on exam. Total time spent on discharge = 60 minutes This includes examination of the patient, discharge planning, medication reconciliation, and communication with other providers. Discharge Instructions [facility] [address] [place] [address] Discharge Medical Patient Name: Robe Shaver JR Unit Number: [id number] Date of : 1990 Patient Status: Discharged Inpatient Attending Doctor: Nadya Hermosillo DO DI: Medical v4 Discharge Instructions Date of Service Aug 16, 2017. Admission Reason for Admission: Asthma Exacerbation Discharge Discharge Diagnosis / Problem: asthma exacerbation Discharge Goals Goal(s): Prevent Disease Progression Activity Recommendations Activity Limitations: per Instructions/Follow-up section . Instructions / Follow-Up Instructions / Follow-Up Please take all medications as instructed. You will need a follow-up appointment with your primary care provider within one week of discharge. One of our staff will contact you after the weekend to help schedule this. It is important that you quit smoking. You have been provided a prescription for nicotine gum to chew in place of smoking. It was a pleasure taking care of you! Call if you have any questions or problems. You can reach a [facility] hospitalist on duty at [facility] 24 hours a day by calling [phone]. Take care of yourself. Nadya Hermosillo DO [facility] Hospitalist Current Hospital Diet Patient's current hospital diet: AHA Diet (Heart Healthy) Discharge Diet Recommended Diet: AHA Diet (Heart Healthy) Procedures Procedures Performed: None. Pending Studies Studies pending at discharge: yes List of pending studies: Final blood cultures pending with preliminary results negative at discharge. Medical Emergencies . Who to Call and When: Medical Emergencies: If at any time you feel your situation is an emergency, please call 911 immediately. . Non-Emergent Contact Non-Emergency issues call your: Primary Care Provider . . "Provider Documentation" section prepared by Nadya Hermosillo. . VTE Core Measure Inpt VTE Proph given/why not?: Enoxaparin (Lovenox)SQ Additional Copies To Chad Cantu D.O.
== END 2017-08-16 16:00 | disposition home or self-care (01) | DRG 189 ==
LOC: EDBD 23:50 → C.EDA 23:51 → C.2E 08-15 02:49 → ENRESERV 08-15 03:58
PROVIDERS: ADMIT Internal Medicine; ATTEND Hospitalist
DX: J96.01 Acute respiratory failure with hypoxia (principal); J45.901 Unspecified asthma with (acute) exacerbation; N17.9 Acute kidney failure, unspecified; F32.9 Major depressive disorder, single episode, unspecified; K21.9 Gastro-esophageal reflux disease without esophagitis; F41.1 Generalized anxiety disorder; F98.8 Other specified behavioral and emotional disorders with onset usually occurring in childhood and adolescence; Z68.38 Body mass index [BMI] 38.0-38.9, adult; Z87.01 Personal history of pneumonia (recurrent); Z88.0 Allergy status to penicillin; E66.9 Obesity, unspecified; E87.6 Hypokalemia; B97.89 Other viral agents as the cause of diseases classified elsewhere; F17.200 Nicotine dependence, unspecified, uncomplicated